=== PATIENT | male | born 1960 | race Hispanic/Latino ===

== ENCOUNTER 2018-05-03 15:43 | Inpatient (IN) | payer MEDICAID ==
[2018-05-03 15:53] VITALS: BMI 32.0
[2018-05-03] MEDS ORDERED: Sodium Chloride 0.9% 1,000 ML IV STA (16:02)
[2018-05-03 16:23] LABS: BASO # 0.01 K/mm3 (0.0-2.0); BASO % 0.7 % (0.0-3.0); GRAN # 0.69 (1.4-6.5); GRAN % 47.9 % (50.0-68.0); HEMOGLOBIN 14.1 g/dL (14.0-18.0); LYMPH # 0.6 (1.2-3.4); LYMPH % 42.4 % (22.0-35.0); MEAN CELL VOLUME 84.4 fl (80.0-105.0); MEAN CORPUSCULAR HEMOGLOBIN 29.7 pg (25.0-35.0); MEAN CORPUSCULAR HGB CONC 35.3 g/dl (31.0-37.0); MONO # 0.1 (0.1-0.6); RBC 4.74 10^6/uL (3.5-6.1); RED CELL DISTRIBUTION WIDTH 18.9 % (11.5-14.5)
--- NOTE | 2018-05-03 16:26 | RAD ---
HISTORY: tremors COMPARISON: 11/02/2014 FINDINGS: LUNGS: No active pulmonary disease. PLEURA: No significant pleural effusion identified, no pneumothorax apparent. CARDIOVASCULAR: Normal. OSSEOUS STRUCTURES: No significant abnormalities. VISUALIZED UPPER ABDOMEN: Normal. OTHER FINDINGS: None. IMPRESSION: No active disease.
[2018-05-03 16:27] LABS: PLATELET COUNT 18 10^3/uL (120.0-450.0); WHITE BLOOD COUNT 1.4 10^3/ul (4.5-11.0)
[2018-05-03 16:29] LABS: INR 0.98 (0.93-1.08); PARTIAL THROMBOPLASTIN TIME 30.1 Seconds (25.1-36.5); PROTHROMBIN TIME 11.2 SECONDS (9.4-12.5)
[2018-05-03 16:31] LABS: ALB/GLOB RATIO 1.4 (1.1-1.8); ALBUMIN 4.5 g/dL (3.0-4.8); ALT/SGPT 197 U/L (7-56); AMYLASE 84 U/L (35-125); AST/SGOT 312 U/L (17-59); BLOOD UREA NITROGEN 14 mg/dL (7-21); CALCIUM 8.8 mg/dL (8.4-10.5); GFR AFRICAN-AMERICAN > 60; GFR NON-AFRICAN AMERICAN > 60; LIPASE 451 U/L (23-300)
[2018-05-03 16:34] LABS: ACETAMINOPHEN < 10.0 ug/ml (10.0-20.0); SALICYLATE < 1 mg/dL (2.0-20.0)
[2018-05-03 16:42] LABS: TROPONIN I 0.01 ng/mL
[2018-05-03 16:49] LABS: CK-MB 3.5 ng/mL (0.0-3.6)
[2018-05-03] MEDS ORDERED: Multivitamin (MVI) 10 ML, Thiamine 100 MG, Folic Acid 1 MG in Dextrose 5% In Water 1,00... IV ONE (17:17)
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
--- NOTE | 2018-05-03 17:25 | CP.PCM.CON ---
History of Present Illness - History of Present Illness History of Present Illness: MICU CONSULT NOTE HPI Patient is 58yo male with PMHx of HTN, chronic thrombocytopenia, etoh abuse, reports 3pints of vodka/day, presents from home with shaking, and tremors. Pt reports last drink was yesterday, and has had anxiety and shaking since then. Pt denies fever, chills, cough, chest pain, sob, palpitations, CALDWELL dizziness. No other constitutional symptoms. Pt reports heavy etoh abuse over last few weeks after his girlfriend left him. In the ER given Ativan 2mg IV x 1, NS bolus 1 Liter. PMhx as above PSHx as above Meds as per EMR FHx NC Social denies smoking, drug use; reports 3 pints of vodka/day; owns a bar Review of Systems - Review of Systems Review of Systems: as per HPI Past Patient History - Past Social History Smoking Status: Never Smoked - CARDIAC Hx Hypertension: Yes - PULMONARY Hx Respiratory Disorders: No - NEUROLOGICAL Hx Neurological Disorder: No - HEENT Hx HEENT Problems: No - RENAL Hx Chronic Kidney Disease: No - ENDOCRINE/METABOLIC Hx Endocrine Disorders: No - HEMATOLOGICAL/ONCOLOGICAL Hx Blood Disorders: Yes (Thrombocytopenia) - INTEGUMENTARY Hx Dermatological Problems: No - MUSCULOSKELETAL/RHEUMATOLOGICAL Hx Musculoskeletal Disorders: No Hx Falls: No - GASTROINTESTINAL Hx Gastrointestinal Disorders: No - GENITOURINARY/GYNECOLOGICAL Hx Genitourinary Disorders: No - PSYCHIATRIC Hx Psychophysiologic Disorder: No Hx Substance Use: No - SURGICAL HISTORY Hx Surgeries: No Meds Allergies/Adverse Reactions: Allergies Allergy/AdvReac Type Severity Reaction Status Date / Time No Known Allergies Allergy Verified 05/03/18 15:56 - Medications Medications: Current Medications Multivitamins/Vitamin C 10 ml/Thiamine HCl 100 mg/ Folic Acid 1 mg/ Dextrose 1, 011.2 mls @ 1,000 mls/hr IV .Q1H1M ONE Stop: 05/03/18 18:17 Physical Exam - Constitutional Appears: Non-toxic, No Acute Distress, Unkempt - Head Exam Head Exam: NORMAL INSPECTION - Eye Exam Eye Exam: Normal appearance - ENT Exam ENT Exam: Mucous Membranes Moist - Neck Exam Neck exam: Positive for: Full Rom - Respiratory Exam Respiratory Exam: Clear to Auscultation Bilateral, NORMAL BREATHING PATTERN - Cardiovascular Exam Cardiovascular Exam: REGULAR RHYTHM, +S1, +S2 - GI/Abdominal Exam GI & Abdominal Exam: Normal Bowel Sounds, Soft - Extremities Exam Extremities exam: Positive for: normal inspection Additional comments: NO TREMORS - Neurological Exam Neurological exam: Alert, Oriented x3 Results - Vital Signs Recent Vital Signs: Last Vital Signs Temp 98.1 F 05/03/18 15:54 Pulse 119 H 05/03/18 15:54 Resp 18 05/03/18 15:54 BP 157/107 H 05/03/18 15:54 Pulse Ox 96 05/03/18 15:54 - Labs Result Diagrams: 05/03/18 16:00 05/03/18 16:00 Labs: Laboratory Results - last 24 hr 05/03/18 05/03/18 05/03/18 16:00 16:00 16:00 WBC 1.4 L* D RBC 4.74 Hgb 14.1 Hct 40.0 L MCV 84.4 MCH 29.7 MCHC 35.3 RDW 18.9 H Plt Count 18 L* Gran % 47.9 L Lymph % (Auto) 42.4 H Bowie % (Auto) 9.0 H Eos % (Auto) 0.0 L Baso % (Auto) 0.7 Gran # 0.69 L Lymph # (Auto) 0.6 L Bowie # (Auto) 0.1 Eos # (Auto) 0.0 Baso # (Auto) 0.01 PT 11.2 INR 0.98 APTT 30.1 Sodium 149 H Potassium 4.0 Chloride 105 Carbon Dioxide 21 Anion Gap 27 H BUN 14 Creatinine 1.0 Est GFR ( Amer) > 60 Est GFR (Non-Af Amer) > 60 Random Glucose 145 H Calcium 8.8 Magnesium 1.6 L Total Bilirubin 1.6 H AST 312 H ALT 197 H Alkaline Phosphatase 81 Lactate Dehydrogenase 1043 H Total Creatine Kinase 294 H CK-MB (CK-2) 3.5 CK-MB (CK-2) % Cancelled Troponin I 0.01 Total Protein 7.7 Albumin 4.5 Globulin 3.2 Albumin/Globulin Ratio 1.4 Amylase 84 Lipase 451 H Salicylates Acetaminophen Alcohol, Quantitative 05/03/18 05/03/18 16:00 16:00 WBC RBC Hgb Hct MCV MCH MCHC RDW Plt Count Gran % Lymph % (Auto) Bowie % (Auto) Eos % (Auto) Baso % (Auto) Gran # Lymph # (Auto) Bowie # (Auto) Eos # (Auto) Baso # (Auto) PT INR APTT Sodium Potassium Chloride Carbon Dioxide Anion Gap BUN Creatinine Est GFR ( Amer) Est GFR (Non-Af Amer) Random Glucose Calcium Magnesium Total Bilirubin AST ALT Alkaline Phosphatase Lactate Dehydrogenase Total Creatine Kinase CK-MB (CK-2) CK-MB (CK-2) % Troponin I Total Protein Albumin Globulin Albumin/Globulin Ratio Amylase Lipase Salicylates < 1 L Acetaminophen < 10.0 L Alcohol, Quantitative 290 H Assessment & Plan - Assessment and Plan (Free Text) Assessment: 58yo male a/w EtOH withdrawal EtOH withdrawal Chronic Thrombocytopenia - currently afebrile, HD stable, comfortable in NAD, reports tremors/shakes, denies CALDWELL, dizziness, falls, epistaxis, rectal bleeding - HR 90-100, no extension tremors noted (given Ativan 2mg IV x 1) - Positive alcohol level - IVF hydration, MVT, thiamine, Folic - Ativan IV PRN - CIWA protocol - Bedrest given thrombocytopenia, + alcohol - pt reports he would like detox, obtain psych eval - monitor K, Mg, Phos - monitor on telemetry
--- NOTE | 2018-05-03 19:46 | CT ---
EXAM: CT Head Without Intravenous Contrast CLINICAL HISTORY: 58 years old, male; Screening exam; Patient HX: ETOH TECHNIQUE: Axial computed tomography images of the head/brain without intravenous contrast. All CT scans at this facility use one or more dose reduction techniques, viz.: automated exposure control; ma/kV adjustment per patient size (including targeted exams where dose is matched to indication; i.e. head); or iterative reconstruction technique. Coronal and sagittal reformatted images were created and reviewed. COMPARISON: No relevant prior studies available. FINDINGS: Brain: Mild atrophy. No intracranial hemorrhage. No mass. No definite edema. Ventricles: No hydrocephalus. Bones/joints: No acute fracture. Soft tissues: Unremarkable. Vasculature: Minimal atherosclerotic disease of intracranial arteries. Sinuses: Scattered minimal to mild mucosal thickening of ethmoid sinuses. Mild focal mucosal thickening of maxillary sinuses. Mastoid air cells: No mastoid effusion. Orbits: Unremarkable as visualized. IMPRESSION: 1. No definite acute intracranial abnormality. 2. Incidental/non-acute findings are described above.
[2018-05-04 07:14] LABS: HEMOGLOBIN 11.9 g/dL (14.0-18.0); MEAN CELL VOLUME 84.6 fl (80.0-105.0); MEAN CORPUSCULAR HEMOGLOBIN 29.1 pg (25.0-35.0); MEAN CORPUSCULAR HGB CONC 34.4 g/dl (31.0-37.0); RBC 4.09 10^6/uL (3.5-6.1); RED CELL DISTRIBUTION WIDTH 18.7 % (11.5-14.5)
[2018-05-04 07:31] LABS: PLATELET COUNT 13 10^3/uL (120.0-450.0)
[2018-05-04 07:46] LABS: ALB/GLOB RATIO 1.5 (1.1-1.8); ALT/SGPT 164 U/L (7-56); AST/SGOT 230 U/L (17-59); BLOOD UREA NITROGEN 14 mg/dL (7-21); CALCIUM 9.1 mg/dL (8.4-10.5); GFR AFRICAN-AMERICAN > 60; GFR NON-AFRICAN AMERICAN > 60
[2018-05-04 07:55] LABS: IRON 201 ug/dL (45-180)
[2018-05-04] MEDS ORDERED: Magnesium Sulfate 2 GM in Sodium Chloride 0.9% 100 ML IV ONE (09:24)
[2018-05-04] MEDS ORDERED: Magnesium 2 gm/50 ml NS 2 GM/50 ML BAG IVPB ONE (09:45)
--- NOTE | 2018-05-04 09:59 | CARD ---
APPROVED REPORT EKG Measurement Heart [id number] CO [id number] <Conclusion> Normal sinus rhythm NSSTW changes No change
[2018-05-04 10:17] LABS: % IRON SATURATION 88 % (20-55); TOTAL IRON BINDING CAPACITY 238 ug/dL (261-462)
--- NOTE | 2018-05-04 11:07 | CP.PCM.CON ---
<Pamela Hernandez - Last Filed: 05/04/18 11:43> History of Present Illness - History of Present Illness History of Present Illness: GI Consult Note for Jorge Hernandez PGY2 This is a 58yo male with past medical history of alcoholism, chronic thrombocytopenia who came to hospital for tremors, shaking secondary to alcohol withdrawal. Patient was noted to have abnormal LFTs and hyperbilirubinemia. Patient reports his last drink was 2 days ago. He denies taking any new medication, recent travel, chest pain, shortness of breath, nausea/vomiting/ diarrhea, fever or chills. Patient reports he never had an EGD or colonoscopy. Past medical history: chronic thrombocytopenia, EtOH abuse, anxiety Past surgical history: Denies Home meds: Reviewed as per MAR Allergies: NKDA Social history: drinks 3 pints of vodka per day. Denies tobacco or drug use. Works as a bar terminal superintendent. Family history: Non- Review of Systems - Review of Systems All systems: reviewed and no additional remarkable complaints except Review of Systems: 12 point ROS reviewed as per HPI and is otherwise negative. Past Patient History - Tetanus Immunizations Tetanus Immunization: Unknown - Past Social History Smoking Status: Never Smoked - CARDIAC Hx Hypertension: Yes - PULMONARY Hx Respiratory Disorders: No - NEUROLOGICAL Hx Neurological Disorder: No - HEENT Hx HEENT Problems: No - RENAL Hx Chronic Kidney Disease: No - ENDOCRINE/METABOLIC Hx Endocrine Disorders: No - HEMATOLOGICAL/ONCOLOGICAL Hx Blood Disorders: Yes (Thrombocytopenia) - INTEGUMENTARY Hx Dermatological Problems: No - MUSCULOSKELETAL/RHEUMATOLOGICAL Hx Falls: No Hx Gout: Yes - GASTROINTESTINAL Hx Gastrointestinal Disorders: No - GENITOURINARY/GYNECOLOGICAL Hx Genitourinary Disorders: No - PSYCHIATRIC Hx Psychophysiologic Disorder: No Hx Anxiety: Yes - SURGICAL HISTORY Hx Surgeries: No Meds Allergies/Adverse Reactions: Allergies Allergy/AdvReac Type Severity Reaction Status Date / Time No Known Allergies Allergy Verified 05/03/18 15:56 - Medications Medications: Current Medications Alprazolam (Xanax) 1 mg PO Q4H PRN; Protocol PRN Reason: Anxiety Last Admin: 05/04/18 09:01 Dose: 1 mg Chlordiazepoxide (Librium) 75 mg PO BID [facility] PRN Reason: Protocol Last Admin: 05/04/18 09:01 Dose: 75 mg Magnesium Oxide (Mag-Ox) 400 mg PO BID [facility] Multivitamins (Thera Tab) 1 tab PO 0800 [facility] Thiamine HCl (Vitamin B1 Tab) 100 mg PO DAILY [facility] Physical Exam - Constitutional Appears: No Acute Distress - Head Exam Head Exam: ATRAUMATIC, NORMAL INSPECTION, NORMOCEPHALIC - Eye Exam Eye Exam: Normal appearance Pupil Exam: NORMAL ACCOMODATION - ENT Exam ENT Exam: Mucous Membranes Moist - Respiratory Exam Respiratory Exam: Clear to Auscultation Bilateral, NORMAL BREATHING PATTERN. absent: Rales, Rhonchi, Wheezes - Cardiovascular Exam Cardiovascular Exam: REGULAR RHYTHM, +S1, +S2. absent: Gallop, Rubs, Systolic Murmur - GI/Abdominal Exam GI & Abdominal Exam: Normal Bowel Sounds, Soft. absent: Mass, Rebound, Rigid, Tenderness - Extremities Exam Extremities exam: Positive for: normal inspection. Negative for: calf tenderness, pedal edema - Neurological Exam Neurological exam: Alert, CN II-XII Intact, Oriented x3 - Skin Skin Exam: Dry, Warm Results - Vital Signs Recent Vital Signs: Last Vital Signs Temp 98.2 F 05/04/18 06:00 Pulse 86 05/04/18 06:00 Resp 18 05/04/18 06:00 BP 137/98 H 05/04/18 00:01 Pulse Ox 96 05/04/18 06:00 - Labs Result Diagrams: 05/04/18 06:30 05/04/18 06:30 Labs: Laboratory Results - last 24 hr 05/03/18 05/04/18 05/04/18 19:00 06:30 06:30 WBC 1.0 L* D RBC 4.09 Hgb 11.9 L D Hct 34.6 L MCV 84.6 MCH 29.1 MCHC 34.4 RDW 18.7 H Plt Count 13 L* Retic Count 0.92 Sodium 139 Potassium 4.2 Chloride 100 Carbon Dioxide 28 Anion Gap 15 BUN 14 Creatinine 0.8 Est GFR ( Amer) > 60 Est GFR (Non-Af Amer) > 60 Random Glucose 97 Calcium 9.1 Phosphorus 3.3 Magnesium 1.2 L Iron TIBC % Saturation Total Bilirubin 2.0 H AST 230 H D ALT 164 H Alkaline Phosphatase 86 Total Protein 6.7 Albumin 4.0 Globulin 2.7 Albumin/Globulin Ratio 1.5 Blood Type B POSITIVE Antibody Screen Negative BBK History Checked Patient has bt 05/04/18 06:30 WBC RBC Hgb Hct MCV MCH MCHC RDW Plt Count Retic Count Sodium Potassium Chloride Carbon Dioxide Anion Gap BUN Creatinine Est GFR ( Amer) Est GFR (Non-Af Amer) Random Glucose Calcium Phosphorus Magnesium Iron 201 H TIBC 238 L % Saturation 88 H Total Bilirubin AST ALT Alkaline Phosphatase Total Protein Albumin Globulin Albumin/Globulin Ratio Blood Type Antibody Screen BBK History Checked Assessment & Plan - Assessment and Plan (Free Text) Assessment: This is a 58yo male with past medical history of alcoholism, chronic thrombocytopenia who was admitted for 1. Alcohol withdrawal 2. Transaminitis with hyperbilirubinemia - can be secondary to alcoholism v. other etiology (will rule out hemochromotosis and hepatitis) 3. Thrombocytopenia (chronic) Plan: Iron studies were elevated. Will rule out hemochromotosis. Will get hepatitis panel. Possible EGD tomorrow. Will obtain abdominal U/S as well as abdominal duplex U/S to rule out portal vein thrombosis. Hold PPI for thrombocytopenia. Will continue to monitor LFTs Case seen, discussed and reviewed with Dr. James. Jorge Hernandez PGY2 - Date & Time Date: 05/04/18 Time: 12:07 <Román James V - Last Filed: 05/04/18 20:49> Meds - Medications Medications: Current Medications Alprazolam (Xanax) 1 mg PO Q4H PRN; Protocol PRN Reason: Anxiety Last Admin: 05/04/18 18:43 Dose: 1 mg Chlordiazepoxide (Librium) 75 mg PO BID [facility] PRN Reason: Protocol Last Admin: 05/04/18 18:33 Dose: 75 mg Magnesium Oxide (Mag-Ox) 400 mg PO BID [facility] Last Admin: 05/04/18 18:33 Dose: 400 mg Multivitamins (Thera Tab) 1 tab PO 0800 [facility] Thiamine HCl (Vitamin B1 Tab) 100 mg PO DAILY [facility] Last Admin: 05/04/18 11:19 Dose: 100 mg Results - Vital Signs Recent Vital Signs: Last Vital Signs Temp 99.6 F 05/04/18 18:00 Pulse 83 05/04/18 18:00 Resp 18 05/04/18 18:00 BP 135/98 H 05/04/18 18:00 Pulse Ox 96 05/04/18 06:00 - Labs Result Diagrams: 05/04/18 06:30 05/04/18 06:30 Labs: Laboratory Results - last 24 hr 05/04/18 05/04/18 05/04/18 06:30 06:30 06:30 WBC 1.0 L* D RBC 4.09 Hgb 11.9 L D Hct 34.6 L MCV 84.6 MCH 29.1 MCHC 34.4 RDW 18.7 H Plt Count 13 L* Retic Count 0.92 Sodium 139 Potassium 4.2 Chloride 100 Carbon Dioxide 28 Anion Gap 15 BUN 14 Creatinine 0.8 Est GFR ( Amer) > 60 Est GFR (Non-Af Amer) > 60 Random Glucose 97 Calcium 9.1 Phosphorus 3.3 Magnesium 1.2 L Iron 201 H TIBC 238 L % Saturation 88 H Ferritin 313.0 Total Bilirubin 2.0 H AST 230 H D ALT 164 H Alkaline Phosphatase 86 Total Protein 6.7 Albumin 4.0 Globulin 2.7 Albumin/Globulin Ratio 1.5 Vitamin B12 536 Folate 9.2 Hepatitis A IgM Ab Hep Bs Antigen Hep B Core IgM Ab Hepatitis C Antibody 05/04/18 12:25 WBC RBC Hgb Hct MCV MCH MCHC RDW Plt Count Retic Count Sodium Potassium Chloride Carbon Dioxide Anion Gap BUN Creatinine Est GFR ( Amer) Est GFR (Non-Af Amer) Random Glucose Calcium Phosphorus Magnesium Iron TIBC % Saturation Ferritin Total Bilirubin AST ALT Alkaline Phosphatase Total Protein Albumin Globulin Albumin/Globulin Ratio Vitamin B12 Folate Hepatitis A IgM Ab Negative Hep Bs Antigen Negative Hep B Core IgM Ab Negative Hepatitis C Antibody Negative Attending/Attestation - Attestation I have personally seen and examined this patient.: Yes I have fully participated in the care of the patient.: Yes I have reviewed all pertinent clinical information: Yes Notes (Text): This is an addendum to GI consult report dictated by the Gear Cutting Machine Set Up Operator.The patient was seen and examined earlier. Medical records, lab studies, imagings were reviewed. Last 24 hours events reviewed. Agreed with the above treatment plan as outlined in Gear Cutting Machine Set Up Operator 's notes the with the addition of the following History of heavy EtOH abuse Chronic liver disease probable cirrhosis History of fall Pancytopenia Increased transferring saturation 88%. Increased iron and reduced to TIBC rule out hemachromatosis On examination abdomen softly distended no tenderness Plan 1. Will hold off EGD now. Await for further medical optimization, severe thrombocytopenia 2. Pancytopenia probably secondary to alcohol INDUCED in the backround of chronic liver disease probable cirrhosis 3. Probable cirrhosis, request alfafetoprotein, 4.Serum ammoinia level 5 monitor closely for impending DT 05/04/18 20:38
[2018-05-04] MEDS: Magnesium Oxide 400 mg Tab UD PO SCH ×2 (11:19→18:33)
[2018-05-04 13:26] LABS: FOLATE 9.2 ng/mL
[2018-05-04 16:33] LABS: HEPATITIS B SURFACE AG Negative (NEGATIVE)
[2018-05-04 16:49] LABS: HEPATITIS C ANTIBODY NEGATIVE (NEGATIVE)
[2018-05-04 18:54] LABS: HEPATITIS A IGM NEGATIVE (NEGATIVE); HEPATITIS B CORE AB NEGATIVE (NEGATIVE)
--- NOTE | 2018-05-04 20:30 | HP ---
DATE OF EXAM: CHIEF COMPLAINT AND HISTORY OF PRESENT ILLNESS: This is a 58-year-old male who has come into the hospital. He has been drinking. He does have a history of alcoholism. He was to go through withdrawals, came into the hospital for further evaluation. He apparently had a breakup with his girlfriend. He has a history of anxiety. He denies any suicidal ideation or plan. He has no shortness of breath or chest pain. He has no abdominal pain. No headaches or dizziness. No nausea. No vomiting. No fevers. He had a fall about 3 weeks ago. His last drink was yesterday morning. He has been complaining of tremors and fatigue. He had spoken with Dr. Anderson, his primary care doctor and he is advised to come to the hospital for further evaluation. REVIEW OF SYMPTOMS: All other review of symptoms are within normal limits except as mentioned. ALLERGIES: NO KNOWN DRUG ALLERGIES. HOME MEDICATIONS: None. PAST MEDICAL HISTORY: Chronic thrombocytopenia, alcoholism, hypertension, anxiety and gout. SOCIAL HISTORY: He drinks 3 pints of Vodka per day. He has a history of cocaine use. FAMILY HISTORY: Noncontributory. PHYSICAL EXAMINATION: VITAL SIGNS: He has a temperature of 98.2, pulse is 86, blood pressure is 137/98, respirations 18 and O2 saturation 96%. Height is 6 feet 5 inches, weight is 250 pounds, BMI is 29.7. GENERAL: The patient lying in bed, uncomfortable, and in no acute distress. HEENT: Atraumatic and normocephalic. Anicteric sclerae. Moist mucosa. [place] conjunctivae. No oral lesions. NECK: No JVD, anterior and posterior adenopathy, thyromegaly, or bruits. CARDIOVASCULAR: S1 and S2 regular. No murmur, rubs, or gallop. LUNGS: Clear to auscultation bilaterally. No wheezes, rales, or rhonchi. ABDOMEN: Bowel sounds are positive. Soft, nontender and nondistended. No hepatosplenomegaly. No rebound and no guarding EXTREMITIES: No cyanosis, clubbing or edema. NEUROLOGIC: No facial asymmetry. Tongue is midline. No uvula deviation. Power is 5/5 upper extremity and lower extremity. Sensation intact in upper extremity and lower extremity. He has tremor. PSYCHIATRIC: He is awake, alert and oriented x3. No anxiety or depression. He has normal affect. GENITOURINARY: No CVA tenderness. VASCULAR: 2+ pulses in the carotid pulses and pedal pulses. SKIN: No erythema or nodules SPINE: Shows normal curvature. LABORATORY DATA: White count is 1.4, hemoglobin is 14.1, platelet count is 18. Repeat labs, white count of 1, hemoglobin is 11.9, platelet count is 13. Manual platelet count is 20. INR 0.98. Chemistry shows AST is 230, ALT is 164. LDH is 1043. Lipase is 451. Toxicology shows salicylates negative, alcohol is 290, acetaminophen is less than 10. DIAGNOSTIC DATA: CT of the head done, shows no definite acute intracranial abnormalities. Chest x-ray shows no active disease. ASSESSMENT: 1. Alcohol withdrawal. 2. Alcoholism. 3. Thrombocytopenia. 4. Leukopenia. 5. Transaminitis. 6. Cirrhosis. PLAN: The patient is currently comfortable. He was given his Librium. Patient will need evaluation by GI for cirrhosis. The patient is on Xanax. I will also get Dr. Mandujano to evaluate the nurse's concern about hematuria. Patient will need a UA to check if he has hematuria. He may just have hyperbilirubinemia that may be discoloring the patient's urine. He is currently on telemetry monitoring. I have increased his Librium to 75 mg b.i.d. and he is on Xanax for breakthrough anxiety as well. Giovanny Ni MD
--- NOTE | 2018-05-04 21:24 | US ---
PROCEDURE: Portal vein duplex ultrasound. CLINICAL HISTORY: Cirrhosis. Deteriorating liver function. Evaluate for portal vein thrombosis. PHYSICIAN(S): William Anderson M.D. FINDINGS: The extrahepatic portal vein is patent with hepatopetal flow. No sonographic evidence for thrombus or obstruction is seen. The 3 hepatic veins are visualized centrally and patent. The hepatic artery is patent. The hepatic parenchyma is echogenic and heterogeneous. No obvious masses are seen on the limited images. The spleen is enlarged. No ascites is seen IMPRESSION: 1. Patent portal vein with hepatopetal flow.
--- NOTE | 2018-05-05 00:09 | CP.PCM.CON ---
History of Present Illness - History of Present Illness History of Present Illness: Mr. Caldwell is a 58 year old male admitted with ETOH withdrawl. He has pancytopenia. review of records showed that pancytopenia has been there since 2011. He underwent Bone marrow aspiration, biopsy in 2012, unremarkable. Platelet count declined to 13 k. No bleeding. Iron studies showed elevated iron. Review of Systems - Constitutional Constitutional: As Per HPI - EENT Eyes: absent: As Per HPI, Blind Spots, Blurred Vision, Change in Vision, Decreased Night Vision, Diplopia, Discharge, Dry Eye, Exophthalmos, Floaters, Irritation, Itchy Eyes, Loss of Peripheral Vision, Pain, Photophobia, Requires Corrective Lenses, Sees Flashes, Spots in Vision, Tunnel Vision, Other Visual Disturbances, Loss of Vision, Other Nose/Mouth/Throat: absent: As Per HPI, Epistaxis, Nasal Congestion, Nasal Discharge, Nasal Obstruction, Nasal Trauma, Nose Pain, Post Nasal Drip, Sinus Pain, Sinus Pressure, Bleeding Gums, Change in Voice, Dental Pain, Dry Mouth, Dysphagia, Halitosis, Hoarsness, Lip Swelling, Mouth Lesions, Mouth Pain, Odynophagia, Sore Throat, Throat Swelling, Tongue Swelling, Facial Pain, Neck Pain, Neck Mass, Other - Cardiovascular Cardiovascular: absent: As Per HPI, Acrocyanosis, Chest Pain, Chest Pain at Rest , Chest Pain with Activity, Claudication, Diaphoresis, Dyspnea, Dyspnea on Exertion, Edema, Irregular Heart Rhythm, Pain Radiating to Arm/Neck/Jaw, Leg Edema, Leg Ulcers, Lightheadedness, Orthopnea, Palpitations, Paroxysmal Nocturnal Dyspnea, Pedal Edema, Radiating Pain, Rapid Heart Rate, Slow Heart Rate, Syncope, Other - Respiratory Respiratory: absent: As Per HPI, Cough, Dyspnea, Hemoptysis, Dyspnea on Exertion , Wheezing, Snoring, Stridor, Pain on Inspiration, Chest Congestion, Excessive Mucous Production, Change in Mucous Color, Pain with Coughing, Other - Gastrointestinal Gastrointestinal: As Per HPI - Genitourinary Genitourinary: absent: As Per HPI, Change in Urinary Stream, Difficulty Urinating, Dysuria, Flank Pain, Hematuria, Pyuria, Nocturia, Urinary Incontinence, Urinary Frequency, Urinary Hesitance, Urinary Urgency, Voiding Freq/Small Amts, Freq UTI, Hx Renal/Bladder Calculi, Hx /Renal Surgery, Bladder Distension, Other - Musculoskeletal Musculoskeletal: absent: As Per HPI, Abnormal Gait, Arthralgias, Atrophy, Back Pain, Deformity, Joint Swelling, Limited Range of Motion, Loss of Height, Muscle Cramps, Muscle Weakness, Myalgias, Neck Pain, Numbness, Radiating Pain into Limb, Stiffness, Tingling, Other - Integumentary Integumentary: absent: As Per HPI, Acne, Alopecia, Bleeding Lesions, Change in Hair, Change in Nails, Change in Pigmentation, Changing Lesions, Dry Skin, Erythema, Furuncle, Hirsutism, Lesions, New Lesions, Non-Healing Lesions, Photosensitivity, Pruritus, Rash, Skin Pain, Skin Ulcer, Sores, Striae, Swelling , Unusual Bruising, Wounds, Jaundice, Other - Endocrine Endocrine: absent: As Per HPI, Change in Body Appearance, Change in Libido, Cold Intolorance, Deepening of Voice, Excessive Sweating, Fatigue, Flushing, Heat Intolorance, Increase in Ring/Shoe/Hat Size, Palpitations, Polydipsia, Polyphagia, Polyuria, Other - Hematologic/Lymphatic Hematologic: As Per HPI Past Patient History - Tetanus Immunizations Tetanus Immunization: Unknown - Past Social History Smoking Status: Never Smoked - CARDIAC Hx Hypertension: Yes - PULMONARY Hx Respiratory Disorders: No - NEUROLOGICAL Hx Neurological Disorder: No - HEENT Hx HEENT Problems: No - RENAL Hx Chronic Kidney Disease: No - ENDOCRINE/METABOLIC Hx Endocrine Disorders: No - HEMATOLOGICAL/ONCOLOGICAL Hx Blood Disorders: Yes (Thrombocytopenia) - INTEGUMENTARY Hx Dermatological Problems: No - MUSCULOSKELETAL/RHEUMATOLOGICAL Hx Falls: No Hx Gout: Yes - GASTROINTESTINAL Hx Gastrointestinal Disorders: No - GENITOURINARY/GYNECOLOGICAL Hx Genitourinary Disorders: No - PSYCHIATRIC Hx Psychophysiologic Disorder: No Hx Anxiety: Yes - SURGICAL HISTORY Hx Surgeries: No Meds Allergies/Adverse Reactions: Allergies Allergy/AdvReac Type Severity Reaction Status Date / Time No Known Allergies Allergy Verified 05/03/18 15:56 - Medications Medications: Current Medications Alprazolam (Xanax) 1 mg PO Q4H PRN; Protocol PRN Reason: Anxiety Last Admin: 05/04/18 22:15 Dose: 1 mg Chlordiazepoxide (Librium) 100 mg PO BID [facility] PRN Reason: Protocol Magnesium Oxide (Mag-Ox) 400 mg PO BID [facility] Last Admin: 05/04/18 18:33 Dose: 400 mg Multivitamins (Thera Tab) 1 tab PO 0800 [facility] Thiamine HCl (Vitamin B1 Tab) 100 mg PO DAILY [facility] Last Admin: 05/04/18 11:19 Dose: 100 mg Physical Exam - Constitutional Appears: Well, Non-toxic - Head Exam Head Exam: ATRAUMATIC, NORMAL INSPECTION, NORMOCEPHALIC - Eye Exam Eye Exam: Normal appearance - ENT Exam ENT Exam: Mucous Membranes Moist - Neck Exam Neck exam: Positive for: Normal Inspection - Respiratory Exam Respiratory Exam: Clear to Auscultation Bilateral, NORMAL BREATHING PATTERN - Cardiovascular Exam Cardiovascular Exam: REGULAR RHYTHM, +S1, +S2 - GI/Abdominal Exam GI & Abdominal Exam: Normal Bowel Sounds, Soft - Extremities Exam Extremities exam: Positive for: normal inspection - Back Exam Back exam: NORMAL INSPECTION - Neurological Exam Neurological exam: Alert, Oriented x3 - Skin Skin Exam: Pallor Results - Vital Signs Recent Vital Signs: Last Vital Signs Temp 99.6 F 05/04/18 18:00 Pulse 85 05/04/18 22:15 Resp 18 05/04/18 18:00 BP 165/115 H 05/04/18 22:15 Pulse Ox 96 05/04/18 06:00 - Labs Result Diagrams: 05/04/18 06:30 05/04/18 06:30 Labs: Laboratory Results - last 24 hr 05/04/18 05/04/18 05/04/18 06:30 06:30 06:30 WBC 1.0 L* D RBC 4.09 Hgb 11.9 L D Hct 34.6 L MCV 84.6 MCH 29.1 MCHC 34.4 RDW 18.7 H Plt Count 13 L* Retic Count 0.92 Sodium 139 Potassium 4.2 Chloride 100 Carbon Dioxide 28 Anion Gap 15 BUN 14 Creatinine 0.8 Est GFR ( Amer) > 60 Est GFR (Non-Af Amer) > 60 Random Glucose 97 Calcium 9.1 Phosphorus 3.3 Magnesium 1.2 L Iron 201 H TIBC 238 L % Saturation 88 H Ferritin 313.0 Total Bilirubin 2.0 H AST 230 H D ALT 164 H Alkaline Phosphatase 86 Total Protein 6.7 Albumin 4.0 Globulin 2.7 Albumin/Globulin Ratio 1.5 Vitamin B12 536 Folate 9.2 Hepatitis A IgM Ab Hep Bs Antigen Hep B Core IgM Ab Hepatitis C Antibody 05/04/18 12:25 WBC RBC Hgb Hct MCV MCH MCHC RDW Plt Count Retic Count Sodium Potassium Chloride Carbon Dioxide Anion Gap BUN Creatinine Est GFR ( Amer) Est GFR (Non-Af Amer) Random Glucose Calcium Phosphorus Magnesium Iron TIBC % Saturation Ferritin Total Bilirubin AST ALT Alkaline Phosphatase Total Protein Albumin Globulin Albumin/Globulin Ratio Vitamin B12 Folate Hepatitis A IgM Ab Negative Hep Bs Antigen Negative Hep B Core IgM Ab Negative Hepatitis C Antibody Negative Assessment & Plan - Assessment and Plan (Free Text) Assessment: 1. Pancytopenia : differential diagnosis include bone marrow suppression due to ETOH abuse. Aplastic anemia, MDS. Splenomegaly . He will need bone marrow aspiration, biopsy for evaluation of pancytopenia. Bone marrow was normal in 2011. 2. 2 units of platelet transfusion today. 3. Elevated iron studies : r/o hemchromatosis Thank you Dr. Ni for allowing us to participate in his care. - Date & Time Date: 05/04/18 Time: 09:00
--- NOTE | 2018-05-05 03:37 | CON ---
DATE: 05/04/2018 GENITOURINARY CONSULTATION CHIEF COMPLAINT: Alcohol ingestion. HISTORY OF PRESENT ILLNESS: This is a 58-year-old male who was seen in the emergency room. The patient reports binge drinking for the past month or so after breaking up with his girlfriend. He is complaining of feeling anxious. He reports he fell a few weeks ago but denies any injury. The patient was admitted for treatment of tremors, fatigue and alcohol withdrawal. During his admission, he was noted to have blood-tinged urine and a Urology consultation was requested. The patient reports he is voiding well. He denies any frequency or urgency. He does report he did have some dysuria few weeks ago, but that this has resolved. He is unsure whether he has seen any gross blood in the urine but it does appear that he has had gross hematuria. He denies any flank pain or history of kidney stones. A consultation was requested regarding the above. PAST MEDICAL HISTORY: Positive for alcohol abuse, positive for thrombocytopenia. Denies any diabetes or hypertension. MEDICATIONS: Include Librium, magnesium oxide, Feratab, vitamin B1, Xanax. ALLERGIES: NO KNOWN DRUG ALLERGIES. FAMILY HISTORY: Noncontributory to this admission. SOCIAL HISTORY: Positive for daily EtOH use. Denies any smoking history. REVIEW OF SYSTEMS: A 12-point review of systems was obtained. Positives as the history of present illness. Denies any other acute issues. PHYSICAL EXAMINATION: GENERAL: The patient is awake and alert. He is in no acute distress. He is afebrile. VITAL SIGNS: Temperature of 98.2, pulse 86, respirations 18, blood pressure 137/98. NECK: Supple. There is no adenopathy or mass. CHEST: Reveals a normal inspiratory effort. CARDIAC: Shows positive S1 and S2. There is no peripheral edema. ABDOMEN: Soft, nontender, nondistended. There is no hepatosplenomegaly. There is no costovertebral angle tenderness. GENITOURINARY: Phallus is normal. There is some dried blood at the urethral meatus. Scrotum is normal. Testes bilaterally descended, nontender, no masses. Epididymis are normal. EXTREMITIES: There is no cyanosis or edema. LABORATORY DATA: WBC count 1, hemoglobin 11.9, platelet count of 13,000. Coags show a PT of 11.2 and INR 0.98. Creatinine 0.8, with a GFR of greater than 60. Elevated liver enzymes, elevated lipase, elevated creatinine kinase and LDH. Alcohol level of 290 from 05/03/2018. No urinalysis has been done. On microbiology, no urine culture is noted. On radiologic exam, no pertinent urologic exams at this time. IMPRESSION AND PLAN: This is a 58-year-old male suffering from alcohol withdrawal. Elevated liver function tests as well as elevated lipase. Possibly the dark colored urine is from bilirubin in the urine, but there does appear to be some dried blood at the urethral meatus. Likely cause would be thrombocytopenia as well, and patient has extremely low platelet count as well as WBC count. Urologically, the plan would be a Hematology consultation to correct the WBCs and thrombocytopenia. We can plan on abdominal imaging such as a CT or an ultrasound to assess his kidneys. Need continued GI and Medicine treatment regarding possible pancreatitis and alcohol withdrawal. I will order a urinalysis for now and a urine culture. If the patient does have gross hematuria, we can consider a cystoscopy at some point when his hematologic abnormalities have been corrected. Thank you for allowing me to participate In the care of this patient. Memo Henry MD [id number]
[2018-05-05 06:18] LABS: HEMOGLOBIN 11.6 g/dL (14.0-18.0); MEAN CELL VOLUME 84.8 fl (80.0-105.0); MEAN CORPUSCULAR HEMOGLOBIN 28.9 pg (25.0-35.0); RBC 4.02 10^6/uL (3.5-6.1); RED CELL DISTRIBUTION WIDTH 18.5 % (11.5-14.5)
[2018-05-05 06:25] LABS: WHITE BLOOD COUNT 1.2 10^3/ul (4.5-11.0)
[2018-05-05 06:26] LABS: PLATELET COUNT 19 10^3/uL (120.0-450.0)
[2018-05-05 07:12] LABS: ALB/GLOB RATIO 1.4 (1.1-1.8); ALBUMIN 4.1 g/dL (3.0-4.8); BLOOD UREA NITROGEN 10 mg/dL (7-21); CALCIUM 9.3 mg/dL (8.4-10.5); GFR AFRICAN-AMERICAN > 60; GFR NON-AFRICAN AMERICAN > 60
[2018-05-05 07:13] LABS: ALT/SGPT 315 U/L (7-56); AST/SGOT 683 U/L (17-59)
[2018-05-05] MEDS: Multivitamin Therapeutic Tab PO SCH (08:13)
--- NOTE | 2018-05-05 11:18 | CP.PCM.PN ---
<Bev Higginbotham - Last Filed: 05/05/18 11:14> Subjective - Date & Time of Evaluation Date of Evaluation: 05/05/18 Time of Evaluation: 10:00 - Subjective Subjective: S&E at bedside earlier today, chart reviewed. Patient A/A/O denies N/V abdominal pain, hematemesis, had BM , no Gi bleeding reported. Denies tremors.No acute overnight events. Objective - Vital Signs/Intake and Output Vital Signs (last 24 hours): Temp Pulse Resp BP Pulse Ox 99.8 F H 89 20 145/103 H 98 05/05/18 06:00 05/05/18 06:00 05/05/18 06:00 05/05/18 06:00 05/05/18 06:00 Intake and Output: 05/05/18 05/05/18 06:59 18:59 Intake Total 0 Output Total 775 Balance -775 - Medications Medications: Current Medications Alprazolam (Xanax) 1 mg PO Q4H PRN; Protocol PRN Reason: Anxiety Last Admin: 05/05/18 03:40 Dose: 1 mg Chlordiazepoxide (Librium) 100 mg PO BID [facility] PRN Reason: Protocol Magnesium Oxide (Mag-Ox) 400 mg PO BID [facility] Last Admin: 05/04/18 18:33 Dose: 400 mg Multivitamins (Thera Tab) 1 tab PO 0800 [facility] Last Admin: 05/05/18 08:13 Dose: Not Given Sucralfate (Carafate Oral Susp) 1 gm PO 0630,1130,1630,2200 [facility] Thiamine HCl (Vitamin B1 Tab) 100 mg PO DAILY [facility] Last Admin: 05/04/18 11:19 Dose: 100 mg - Labs Labs: 05/05/18 05:30 05/05/18 05:30 PT 11.2 SECONDS (9.4-12.5) 05/03/18 16:00 INR 0.98 (0.93-1.08) 05/03/18 16:00 APTT 30.1 Seconds (25.1-36.5) 05/03/18 16:00 - Constitutional Appears: No Acute Distress - Head Exam Head Exam: NORMOCEPHALIC - Eye Exam Eye Exam: Normal appearance. absent: Scleral icterus - ENT Exam ENT Exam: Mucous Membranes Moist - Neck Exam Neck Exam: Normal Inspection - Respiratory Exam Respiratory Exam: NORMAL BREATHING PATTERN. absent: Rales, Wheezes, Respiratory Distress - Cardiovascular Exam Cardiovascular Exam: +S1, +S2 - GI/Abdominal Exam GI & Abdominal Exam: Soft, Normal Bowel Sounds. absent: Guarding, Tenderness, Organomegaly, Rebound - Extremities Exam Extremities Exam: absent: Calf Tenderness, Pedal Edema - Neurological Exam Neurological Exam: Alert, Awake, Oriented x3 - Skin Skin Exam: Dry, Warm Assessment and Plan - Assessment and Plan (Free Text) Assessment: Assessment: Alcohol withdrawal secondary to chronic alcohol use Transaminitis with hyperbilirubinemia - can be secondary to alcoholism v. other etiology (will rule out hemochromotosis and hepatitis) Thrombocytopenia (chronic) Plan: start carafate QID monitor h/h and for overt GI bleeding FU hemochromotosis serology, elevated iron studies FU abdominal U/S/abdominal duplex patient portal vein/hepatic vein Hold PPI for thrombocytopenia Will continue to monitor LFTs Alcohol cessation FU autoimmune markers Seen and discussed with Dr. James. <Román James V - Last Filed: 05/05/18 22:40> Objective - Vital Signs/Intake and Output Vital Signs (last 24 hours): Temp Pulse Resp BP Pulse Ox 99.8 F H 89 20 145/103 H 98 05/05/18 06:00 05/05/18 06:00 05/05/18 06:00 05/05/18 06:00 05/05/18 06:00 Intake and Output: 05/05/18 05/06/18 18:59 06:59 Intake Total 540 Balance 540 - Medications Medications: Current Medications Alprazolam (Xanax) 1 mg PO Q4H PRN; Protocol PRN Reason: Anxiety Last Admin: 05/05/18 11:35 Dose: 1 mg Folic Acid (Folic Acid) 1 mg PO DAILY [facility] Last Admin: 05/05/18 13:40 Dose: 1 mg Lorazepam (Ativan) 2 mg IV Q6 PRN; Protocol PRN Reason: alcohol withdrawals Lorazepam (Ativan) 4 mg PO Q6H [facility] PRN Reason: Protocol Last Admin: 05/05/18 19:48 Dose: 4 mg Magnesium Oxide (Mag-Ox) 400 mg PO BID [facility] Last Admin: 05/05/18 17:38 Dose: 400 mg Multivitamins (Thera Tab) 1 tab PO 0800 [facility] Last Admin: 05/05/18 08:13 Dose: Not Given Sucralfate (Carafate Oral Susp) 1 gm PO 0630,1130,1630,2200 [facility] Last Admin: 05/05/18 21:38 Dose: 1 gm Thiamine HCl (Vitamin B1 Tab) 100 mg PO DAILY [facility] Last Admin: 05/05/18 11:35 Dose: 100 mg - Labs Labs: 05/05/18 05:30 05/05/18 05:30 PT 11.2 SECONDS (9.4-12.5) 05/03/18 16:00 INR 0.98 (0.93-1.08) 05/03/18 16:00 APTT 30.1 Seconds (25.1-36.5) 05/03/18 16:00 Attending/Attestation - Attestation I have personally seen and examined this patient.: Yes I have fully participated in the care of the patient.: Yes I have reviewed all pertinent clinical information, including history, physical exam and plan: Yes Notes (Text): This is an addendum to GI progress report dictated by the Exercise Manager.The patient was seen and examined earlier. Medical records, lab studies, imagings were reviewed. Last 24 hours events reviewed. Agreed with the above treatment plan as outlined in Exercise Manager 's notes the with the addition of the following pancytopenia on neutropenic precautions Tolerating diet Abdomen softly distended Rule out hemochromatosis Hematological follow-up Monitor for impending DT Continue Carafate 22:34
[2018-05-05] MEDS: Sucralfate 1 gm/10 ml Oral Susp UD PO SCH ×3 (11:34→21:38)
[2018-05-05] MEDS: Magnesium Oxide 400 mg Tab UD PO SCH ×2 (11:35→17:38)
--- NOTE | 2018-05-05 12:55 | US ---
HISTORY: cirrhosis, elevated LFT and iron COMPARISON: 08/26/2012 TECHNIQUE: Sonographic evaluation of the abdomen. FINDINGS: LIVER: Measures 23.2 cm. Diffusely increased echogenicity of the liver parenchyma. Consistent with fatty infiltration. Smooth contour. No mass. No biliary ductal dilatation. GALLBLADDER: No evidence of cholelithiasis. Mild diffuse mural thickening up to 3 mm. No definite pericholecystic fluid appreciated. Negative sonographic Hernandez sign. COMMON BILE DUCT: Measures 7 mm. No stones. No dilatation. PANCREAS: Unremarkable as visualized. No mass. No ductal dilatation. RIGHT KIDNEY: Measures 11.6cm. Normal echogenicity. No calculus, mass, or hydronephrosis. LEFT KIDNEY: Measures 12.4cm. Normal echogenicity. No calculus, mass, or hydronephrosis. SPLEEN: Splenomegaly. The spleen measures 16.6 cm in greatest dimension. There is no focal mass. AORTA: No aneurysmal dilatation. IVC: Unremarkable. OTHER FINDINGS: None. IMPRESSION: Hepatosplenomegaly. Fatty infiltration of the liver. Mild nonspecific mural thickening of the gallbladder without evidence of cholelithiasis or cholecystitis.
--- NOTE | 2018-05-05 14:23 | PN ---
DATE: 05/05/2018 SUBJECTIVE: The patient has no complaints of any chest pain, no shortness of breath. He was having tremors yesterday and blood pressure is elevated. He had adjustment of his medications. He had a comfortable night. I spoke with the night nurse and he was able to sleep. His tremor and withdrawals are better. He has no complaints of any headaches or dizziness. No nausea. PHYSICAL EXAMINATION VITAL SIGNS: Temperature is 99.8, pulse of 89, blood pressure is 145/103, respirations 20. GENERAL: The patient is lying in bed, flat, comfortable. HEENT: No oral lesion. Anicteric sclerae. Moist mucosa. NECK: No JVD, adenopathy, or thyromegaly. CARDIOVASCULAR: S1 and S2, regular. No murmurs, rubs, or gallops. LUNGS: Clear to auscultation bilaterally. No wheeze, rales, or rhonchi. ABDOMEN: Bowel sounds are positive, soft, nontender and nondistended. EXTREMITIES: No cyanosis, clubbing or edema. LABORATORY DATA: White count of 1.2. He has a hemoglobin of 11.6, platelet count of 19. Creatinine is 0.7. The patient's AST is 683, ALT is 315. Iron saturation 88%, ferritin is 313. Hep B and hep C is negative. Abdominal ultrasound shows patent portal vein with good flow. ASSESSMENT: 1. Alcoholic withdrawal. 2. Alcoholism. 3. Thrombocytopenia. 4. Leukopenia. 5. Transaminitis. 6. Cirrhosis. 7. Problem of hemachromatosis. PLAN: The patient is currently comfortable. The patient's urine is uncollected. I will try to get another urine sample. The patient's hepatitis profile is negative. There is no portal vein thrombosis on the abdominal ultrasound. The patient's thrombocytopenia has been chronic. I did speak to Dr. Mandujano about the case. The patient is on magnesium replacement. He is on Librium 100. The patient is on vitamins and he is also on Xanax. We will continue follow closely. He may need further physical therapy. Giovanny Ni MD
--- NOTE | 2018-05-05 14:53 | CON ---
DATE: HISTORY OF PRESENT ILLNESS: In short, the patient is a 58-year-old male with reported history of alcohol use disorder. The patient was admitted on the medical side for evaluation of alcohol withdrawal symptoms. The patient is having severe alcohol use disorder and drinking alcohol about 3 liters of vodka on daily basis. The patient had history of questionable depression and that is why this marketing copywriter got involved into the patient care. The patient was seen and examined. The patient presented to be alert and oriented. The patient is in neutropenic precaution. The patient reported that he has long history of alcohol use disorder. The patient reported that he never tried to quit drinking. The patient never went to AA meetings, NA meetings as well as the patient had never been admitted to detox or rehab. The patient was advised to sign himself into the alcohol rehab, but the patient declined that offer. The patient also declined any referral to AA meetings or NA meetings. The patient's statement was "I know if I want to, I cant quit." The patient was educated about statistics and that it is very hard to quit by himself. The patient was not receptive. The patient does not want to be on any medications including naltrexone and to abuse those medications. The patient adamantly denied that he is willing to take any of the medication for his addiction. The patient reported that he is working and he supports himself. He is owing business. The patient reported that he is depressed, but not suicidal. The patient does not want to be on any medications and does not want to take any referral for followup appointments. Besides that, the patient denied hearing voices, denied seeing things. Vital signs seems to be stable but blood pressure is elevated. Temperature is 99.8, pulse is 89, blood pressure 145/103, respiration 20, oxygen saturation is 98. Medications reviewed. The patient is on Xanax 1 mg p.o. every 4 hours as needed. Ativan will be given as IV push every 6 hours as needed 2 mg. Lorazepam will be given to him 4 mg every 6 hours scheduled. Librium will be discontinued because of transaminitis and possible alcohol hepatitis. Magnesium oxide 400 mg twice a day, multivitamins, sucralfate, thiamine and folic acid will be started. MENTAL STATUS EXAMINATION: The patient appears to be alert and oriented. The patient presented to be mildly irritable and annoyed with all of the questions. Intermittent eye contact. Mood described as fine. Affect was constricted and irritable. Thought process concrete. Thought content, the patient denied visual, auditory, tactile hallucinations. Denied paranoid ideation. The patient does not present to be psychotic. The patient's insight seems to be limited. Impulses are well controlled. IMPRESSION: Alcohol use disorder, alcohol withdrawal symptoms without complications, without hallucinations, rule out substance-induced mood disorder. PLAN: Continue multivitamins, thiamine and folic acid. This marketing copywriter to continue Librium because of transaminitis. Ativan was started p.o. and IM Xanax was given as p.r.n., multivitamins, thiamine and folic acid. This marketing copywriter educated the patient about transminitis as well as about addiction, about AA meeting and NA meeting, about naltrexone for cravings, but the patient was not receptive. The patient is not suicidal, the patient is not confused. The patient does not want to have any referral for inpatient rehab. As per collateral information from the nursing staff, the patient is not agitated or aggressive. The patient deemed not to be in any imminent danger to self or others. This marketing copywriter will sign off. Should you have any questions, give me a call back. Thank you very much for letting me participate in care of your patient. Yolette Sanchez MD cc: NameMD (Delete if not dictated.) MINOR
[2018-05-06] MEDS: Sucralfate 1 gm/10 ml Oral Susp UD PO SCH ×4 (06:51→21:29)
[2018-05-06 07:44] LABS: BASO # 0.01 K/mm3 (0.0-2.0); BASO % 0.6 % (0.0-3.0); EOS % 1.1 % (1.5-5.0); GRAN # 1.13 (1.4-6.5); GRAN % 62.7 % (50.0-68.0); HEMOGLOBIN 13.3 g/dL (14.0-18.0); LYMPH # 0.5 (1.2-3.4); MEAN CELL VOLUME 85.2 fl (80.0-105.0); MEAN CORPUSCULAR HEMOGLOBIN 29.8 pg (25.0-35.0); MONO # 0.2 (0.1-0.6); MONO % 10.6 % (1.0-6.0); RBC 4.46 10^6/uL (3.5-6.1); RED CELL DISTRIBUTION WIDTH 18.6 % (11.5-14.5)
[2018-05-06 07:54] LABS: CERULOPLASMIN 20 mg/dL (18-36)
[2018-05-06 07:56] LABS: INR 1.08 (0.93-1.08); PARTIAL THROMBOPLASTIN TIME 29.2 Seconds (25.1-36.5); PROTHROMBIN TIME 12.4 SECONDS (9.4-12.5)
[2018-05-06 07:59] LABS: PLATELET COUNT 26 10^3/uL (120.0-450.0); WHITE BLOOD COUNT 1.8 10^3/ul (4.5-11.0)
[2018-05-06] MEDS: Magnesium Oxide 400 mg Tab UD PO SCH ×2 (10:00→17:44)
[2018-05-06] MEDS: Multivitamin Therapeutic Tab PO SCH (10:00)
--- NOTE | 2018-05-06 11:26 | CP.PCM.PN ---
Subjective - Date & Time of Evaluation Date of Evaluation: 05/06/18 Time of Evaluation: 10:20 - Subjective Subjective: Seen and examined at the bedside this morning, chart review. Patient reports having formed BM, no nausea, vomiting, or abdominal pain. No reports of overt GI bleed. Patient ambulating in [place], reports feeling better. Objective - Vital Signs/Intake and Output Vital Signs (last 24 hours): Temp Pulse Resp BP Pulse Ox 98.6 F 83 20 134/89 98 05/06/18 06:00 05/06/18 06:00 05/06/18 06:00 05/06/18 06:00 05/06/18 06:00 Intake and Output: 05/06/18 05/06/18 06:59 18:59 Intake Total 540 Balance 540 - Medications Medications: Current Medications Alprazolam (Xanax) 1 mg PO Q4H PRN; Protocol PRN Reason: Anxiety Last Admin: 05/05/18 11:35 Dose: 1 mg Folic Acid (Folic Acid) 1 mg PO DAILY [facility] Last Admin: 05/06/18 10:00 Dose: 1 mg Lorazepam (Ativan) 2 mg IV Q6 PRN; Protocol PRN Reason: alcohol withdrawals Lorazepam (Ativan) 4 mg PO Q6H [facility] PRN Reason: Protocol Last Admin: 05/06/18 06:51 Dose: 4 mg Magnesium Oxide (Mag-Ox) 400 mg PO BID [facility] Last Admin: 05/06/18 10:00 Dose: 400 mg Multivitamins (Thera Tab) 1 tab PO 0800 [facility] Last Admin: 05/06/18 10:00 Dose: 1 tab Sucralfate (Carafate Oral Susp) 1 gm PO 0630,1130,1630,2200 [facility] Last Admin: 05/06/18 06:51 Dose: 1 gm Thiamine HCl (Vitamin B1 Tab) 100 mg PO DAILY [facility] Last Admin: 05/06/18 10:00 Dose: 100 mg - Labs Labs: 05/06/18 07:15 05/05/18 05:30 PT 12.4 SECONDS (9.4-12.5) 05/06/18 07:15 INR 1.08 (0.93-1.08) 05/06/18 07:15 APTT 29.2 Seconds (25.1-36.5) 05/06/18 07:15 - Constitutional Appears: No Acute Distress - Eye Exam Eye Exam: Normal appearance. absent: Scleral icterus - ENT Exam ENT Exam: Mucous Membranes Moist - Neck Exam Neck Exam: Normal Inspection - Respiratory Exam Respiratory Exam: NORMAL BREATHING PATTERN. absent: Respiratory Distress - Cardiovascular Exam Cardiovascular Exam: +S1, +S2 - GI/Abdominal Exam GI & Abdominal Exam: Soft, Normal Bowel Sounds. absent: Guarding, Tenderness, Organomegaly, Rebound - Extremities Exam Extremities Exam: absent: Calf Tenderness, Pedal Edema - Neurological Exam Neurological Exam: Alert, Awake, Oriented x3 - Skin Skin Exam: Dry, Warm Assessment and Plan - Assessment and Plan (Free Text) Assessment: Assessment: Alcohol withdrawal secondary to chronic alcohol use Transaminitis with hyperbilirubinemia - can be secondary to alcoholism v. other etiology (will rule out hemochromotosis and hepatitis) Thrombocytopenia (chronic) Neutropenia Plan: on neutropenic precaution continue carafate QID monitor h/h and for overt GI bleeding FU hemochromotosis serology, elevated iron studies abdominal U/S: fatty lever/heaptosplenomegaly abdominal duplex:patent portal vein/hepatic vein Hold PPI for thrombocytopenia Will continue to monitor LFTs Alcohol cessation FU autoimmune markers hematology FU Seen and discussed with Dr. James.
--- NOTE | 2018-05-06 13:14 | PN ---
DATE: 05/06/2018 SUBJECTIVE: The patient has no complaints of any chest pain. No shortness of breath, no headaches, no dizziness. PHYSICAL EXAMINATION: VITAL SIGNS: Temperature is 98.7, pulse of 82, blood pressure is 99/67, respirations 18. GENERAL: The patient is lying in bed, flat, comfortable. HEENT: No oral lesion. Anicteric sclerae. Moist mucosa. NECK: No JVD, adenopathy, or thyromegaly. CARDIOVASCULAR: S1 and S2, regular. No murmurs, rubs, or gallops. LUNGS: Clear to auscultation bilaterally. No wheeze, rales, or rhonchi. ABDOMEN: Bowel sounds are positive. Soft, nontender and nondistended. EXTREMITIES: No cyanosis, clubbing or edema. LABORATORY DATA: White count of 1.8, hemoglobin 13.3, creatinine is 0.7, platelets 26. ASSESSMENT: 1. Alcohol withdrawal. 2. Alcoholism. 3. Thrombocytopenia. 4. Leukopenia. 5. Transaminitis. 6. Cirrhosis. 7. Probable hemachromatosis. PLAN: The patient is able to ambulate, he was not able to ambulate before. He is not complaining of any pain. He is able to sleep overnight. The patient is on Ativan. The patient is on magnesium replacement. He is on Xanax as needed. The patient is now on Ativan 4 mg every 6 hours. The patient is on heart-healthy diet. Continue to follow closely. Giovanny Ni MD
[2018-05-07] MEDS: Sucralfate 1 gm/10 ml Oral Susp UD PO SCH ×4 (06:20→21:56)
[2018-05-07 06:44] LABS: HEMOGLOBIN 11.7 g/dL (14.0-18.0); MEAN CELL VOLUME 86.5 fl (80.0-105.0); MEAN CORPUSCULAR HEMOGLOBIN 29.2 pg (25.0-35.0); MEAN CORPUSCULAR HGB CONC 33.7 g/dl (31.0-37.0); RBC 4.01 10^6/uL (3.5-6.1); RED CELL DISTRIBUTION WIDTH 18.8 % (11.5-14.5)
[2018-05-07 06:53] LABS: PLATELET COUNT 26 10^3/uL (120.0-450.0); WHITE BLOOD COUNT 1.6 10^3/ul (4.5-11.0)
[2018-05-07 07:22] LABS: ALB/GLOB RATIO 1.4 (1.1-1.8); ALBUMIN 4.2 g/dL (3.0-4.8); ALT/SGPT 258 U/L (7-56); AST/SGOT 253 U/L (17-59); BLOOD UREA NITROGEN 17 mg/dL (7-21); CALCIUM 9.1 mg/dL (8.4-10.5); GFR AFRICAN-AMERICAN > 60; GFR NON-AFRICAN AMERICAN > 60
--- NOTE | 2018-05-07 09:25 | PN ---
DATE: 05/07/2018 FOLLOWUP NOTE SUBJECTIVE: He is comfortable in bed, in no acute distress. No signs of withdrawal. He is ambulating well. He still has leukopenia and thrombocytopenia, likely related to heavy alcohol abuse. He also has splenomegaly. No bleeding from any site. He received platelet transfusion few days ago. He has pancytopenia for the past few years. Bone marrow evaluation done in 2011 was unremarkable. REVIEW OF SYSTEMS: As per HPI. Rest of 12-point review of systems reviewed negative. PHYSICAL EXAMINATION: GENERAL: Comfortable in bed, in no acute distress. VITAL SIGNS: Temperature 98.7, heart rate 80 per minute, blood pressure 110/70. HEENT: Pallor positive. NECK: No lymphadenopathy. CHEST: Air entry present and equal bilateral. No added sound. CARDIOVASCULAR: S1, S2 normal. No murmur. No gallop. ABDOMEN: Soft, nontender. No hepatosplenomegaly. EXTREMITY: No edema. ACCOUNT DIRECTOR: Alert and oriented x3. No focal sensorimotor deficit. MEDICATIONS: Xanax 1 mg every 4 hours p.r.n., folic acid 1 mg daily, Ativan every 6 hours p.r.n., magnesium 400 mg p.o. b.i.d., multivitamin, Carafate, Pyridoxine, thiamine 100 mg daily. ASSESSMENT: 1. Ethyl alcohol abuse. 2. Anemia. 3. Pancytopenia. 4. Splenomegaly. 5. Possible cirrhosis of the liver. PLAN: Blood counts are currently stable. Has not required platelet transfusions since 05/04/2018. Hemoglobin is 11.7. He has splenomegaly, evaluated by GI. Hepatitis C serology negative. He is followed by Psych also for withdrawal and alcohol abuse. We will continue to monitor closely. He is currently stable. Jailene Mandujano MD
[2018-05-07] MEDS: Multivitamin Therapeutic Tab PO SCH (09:58)
[2018-05-07] MEDS: Magnesium Oxide 400 mg Tab UD PO SCH ×2 (09:58→18:00)
--- NOTE | 2018-05-07 10:48 | CP.PCM.PN ---
<Bev Higginbotham - Last Filed: 05/07/18 10:49> Subjective - Date & Time of Evaluation Date of Evaluation: 05/07/18 Time of Evaluation: 10:44 - Subjective Subjective: S&E at bedside, chart reviewed, ambulating in hallway with steady gait. Wants to go home. No N/V or abdominal pain, having formed BM, no melena or BRBPR. No acute overnight events reported. Objective - Vital Signs/Intake and Output Vital Signs (last 24 hours): Temp Pulse Resp BP Pulse Ox 98.5 F 80 20 160/80 H 99 05/07/18 06:00 05/07/18 06:00 05/07/18 06:00 05/07/18 06:00 05/07/18 06:00 Intake and Output: 05/07/18 05/07/18 06:59 18:59 Intake Total 240 Balance 240 - Medications Medications: Current Medications Alprazolam (Xanax) 1 mg PO Q4H PRN; Protocol PRN Reason: Anxiety Last Admin: 05/05/18 11:35 Dose: 1 mg Folic Acid (Folic Acid) 1 mg PO DAILY [facility] Last Admin: 05/07/18 09:58 Dose: 1 mg Lorazepam (Ativan) 2 mg IV Q6 PRN; Protocol PRN Reason: alcohol withdrawals Lorazepam (Ativan) 4 mg PO Q6H [facility] PRN Reason: Protocol Last Admin: 05/07/18 06:22 Dose: 4 mg Magnesium Oxide (Mag-Ox) 400 mg PO BID [facility] Last Admin: 05/07/18 09:58 Dose: 400 mg Multivitamins (Thera Tab) 1 tab PO 0800 [facility] Last Admin: 05/07/18 09:58 Dose: 1 tab Sucralfate (Carafate Oral Susp) 1 gm PO 0630,1130,1630,2200 [facility] Last Admin: 05/07/18 06:20 Dose: 1 gm Thiamine HCl (Vitamin B1 Tab) 100 mg PO DAILY [facility] Last Admin: 05/07/18 09:58 Dose: 100 mg - Labs Labs: 05/07/18 06:10 05/07/18 06:10 PT 12.4 SECONDS (9.4-12.5) 05/06/18 07:15 INR 1.08 (0.93-1.08) 05/06/18 07:15 APTT 29.2 Seconds (25.1-36.5) 05/06/18 07:15 - Constitutional Appears: No Acute Distress - Eye Exam Eye Exam: Normal appearance - ENT Exam ENT Exam: Mucous Membranes Moist - Neck Exam Neck Exam: Normal Inspection - Respiratory Exam Respiratory Exam: NORMAL BREATHING PATTERN. absent: Respiratory Distress - GI/Abdominal Exam GI & Abdominal Exam: Soft, Normal Bowel Sounds. absent: Guarding, Tenderness, Organomegaly, Rebound - Extremities Exam Extremities Exam: absent: Calf Tenderness, Pedal Edema - Neurological Exam Neurological Exam: Alert, Awake, Oriented x3 - Skin Skin Exam: Dry, Warm Assessment and Plan - Assessment and Plan (Free Text) Assessment: Assessment: Alcohol withdrawal secondary to chronic alcohol use Transaminitis with hyperbilirubinemia - can be secondary to alcoholism v. other etiology (will rule out hemochromotosis and hepatitis) Thrombocytopenia (chronic) Neutropenia Plan: continue carafate QID monitor h/h and for overt GI bleeding FU hemochromotosis serology, elevated iron studies abdominal U/S: fatty lever/heaptosplenomegaly abdominal duplex:patent portal vein/hepatic vein Hold PPI for thrombocytopenia continue to monitor LFTs Alcohol cessation FU autoimmune markers on MVI/thiamine/folic acid hematology FU Seen and discussed with Dr. James. <Román James V - Last Filed: 05/08/18 00:52> Objective - Vital Signs/Intake and Output Vital Signs (last 24 hours): Temp Pulse Resp BP Pulse Ox 98.1 F 70 18 138/91 H 96 05/07/18 22:00 05/07/18 22:00 05/07/18 22:00 05/07/18 22:00 05/07/18 22:00 Intake and Output: 05/07/18 05/08/18 18:59 06:59 Intake Total 780 720 Balance 780 720 - Medications Medications: Current Medications Alprazolam (Xanax) 1 mg PO Q4H PRN; Protocol PRN Reason: Anxiety Last Admin: 05/05/18 11:35 Dose: 1 mg Folic Acid (Folic Acid) 1 mg PO DAILY [facility] Last Admin: 05/07/18 09:58 Dose: 1 mg Lorazepam (Ativan) 2 mg IV Q6 PRN; Protocol PRN Reason: alcohol withdrawals Lorazepam (Ativan) 4 mg PO Q6H [facility] PRN Reason: Protocol Last Admin: 05/07/18 21:56 Dose: 4 mg Magnesium Oxide (Mag-Ox) 400 mg PO BID [facility] Last Admin: 05/07/18 18:00 Dose: Not Given Multivitamins (Thera Tab) 1 tab PO 0800 [facility] Last Admin: 05/07/18 09:58 Dose: 1 tab Sucralfate (Carafate Oral Susp) 1 gm PO 0630,1130,1630,2200 [facility] Last Admin: 05/07/18 21:56 Dose: 1 gm Thiamine HCl (Vitamin B1 Tab) 100 mg PO DAILY [facility] Last Admin: 05/07/18 09:58 Dose: 100 mg - Labs Labs: 05/07/18 06:10 05/07/18 06:10 PT 12.4 SECONDS (9.4-12.5) 05/06/18 07:15 INR 1.08 (0.93-1.08) 05/06/18 07:15 APTT 29.2 Seconds (25.1-36.5) 05/06/18 07:15 Attending/Attestation - Attestation I have personally seen and examined this patient.: Yes I have fully participated in the care of the patient.: Yes I have reviewed all pertinent clinical information, including history, physical exam and plan: Yes Notes (Text): This is an addendum to GI progress report dictated by Bev Higginbotham APN.The patient was seen and examined earlier. Medical records, lab studies, imagings were reviewed. Last 24 hours events reviewed. Agreed with the above treatment plan as outlined in Bev Higginbotham APN's notes the with the addition of the following On examination abdomen soft no tenderness continue Carafate Follow-up hemochromatosis gene testing impression overall, alcohol Elective GI workup 05/08/18 00:50
[2018-05-07 23:06] VITALS: PULSE 70
[2018-05-08] MEDS: Sucralfate 1 gm/10 ml Oral Susp UD PO SCH (06:18)
[2018-05-08 08:41] VITALS: BP 156/90; RESP 20; TEMP 98; O2SAT 98
== END 2018-05-08 08:42 | disposition left against medical advice (07) | DRG 749 ==
LOC: ED 15:43 → ERH 17:29 → 2RNO 18:58 → 5RSO 05-05 12:24
PROVIDERS: ADMIT Internal Medicine Nephrology; ATTEND Internal Medicine Nephrology
PROC: 30233R1 Transfusion of Nonautologous Platelets into Peripheral Vein, Percutaneous Approach (ICD-10-PCS; principal; 2018-05-04)
DX: F10.239 Alcohol dependence with withdrawal, unspecified (principal); D61.818 Other pancytopenia; K70.30 Alcoholic cirrhosis of liver without ascites; F41.9 Anxiety disorder, unspecified; I10 Essential (primary) hypertension; M10.9 Gout, unspecified; F14.90 Cocaine use, unspecified, uncomplicated; R16.1 Splenomegaly, not elsewhere classified; Y90.8 Blood alcohol level of 240 mg/100 ml or more; Z91.81 History of falling

== ENCOUNTER 2018-05-25 16:59 | Emergency (ER) | payer MEDICAID ==
[2018-05-25 17:38] VITALS: RESP 18; TEMP 97.5; BMI 29.0
--- NOTE | 2018-05-25 17:46 | ED PDOC ---
Arrival/HPI - General Time Seen by Provider: 05/25/18 17:25 Historian: Patient - History of Present Illness Narrative History of Present Illness (Text): 05/25/18 17:46 This 58 yo male with pmh alcohol abuse, throbocytopenia, presents to this ED c/ o fall x NURSE WOUND. Patient admits drinking an UKN amount of alcohol today. He said he fell on his knee. Patient denies other complains. Patient denies knee pain , denies hip pain, sob, fever weakness, paresthesias, or abnormal gait. Patient noted multiple fall due to alcohol abuse. Denies recent head injury. Time/Duration: Other (see hpi) Context: Home Past Medical History - Provider Review Nursing Documentation Reviewed: Yes - Tetanus Immunization Tetanus Immunization: Unknown - Past Medical History Past Medical History: No Previous - Cardiac Hx Hypertension: Yes - Pulmonary Hx Respiratory Disorders: No - Neurological Hx Neurological Disorder: No - HEENT Hx HEENT Disorder: No - Renal Hx Renal Disorder: No - Endocrine/Metabolic Hx Endocrine Disorders: No - Hematological/Oncological Hx Blood Disorders: Yes (Thrombocytopenia) - Integumentary Hx Dermatological Disorder: No - Musculoskeletal/Rheumatological Hx Falls: No Hx Gout: Yes - Gastrointestinal Hx Gastrointestinal Disorders: No - Genitourinary/Gynecological Hx Genitourinary Disorders: No - Psychiatric Hx Psychophysiologic Disorder: No Hx Anxiety: Yes Hx Substance Use: No - Past Surgical History Past Surgical History: No Previous - Suicidal Assessment Feels Threatened In Home Enviroment: No Family/Social History - Physician Review Nursing Documentation Reviewed: Yes Family/Social History: Other (noncontributory) Smoking Status: Never Smoked Hx Alcohol Use: Yes Hx Substance Use: No Hx Substance Use Treatment: No Allergies/Home Meds Allergies/Adverse Reactions: Allergies No Known Allergies Allergy (Verified 05/03/18 15:56) Review of Systems - Review of Systems Constitutional: Normal. absent: Fatigue, Weight Change, Fevers, Night Sweats Eyes: Normal ENT: Normal Respiratory: Normal Cardiovascular: Normal Gastrointestinal: Normal Genitourinary Male: Normal Musculoskeletal: Other (see hpi) Skin: Normal Neurological: Normal Endocrine: Normal Hemo/Lymphatic: Normal Psychiatric: Other (alcohol abuse) Physical Exam Vital Signs Temp Pulse Resp BP Pulse Ox 05/26/18 03:04 88 18 136/76 99 05/26/18 03:00 88 18 136/76 99 05/25/18 17:28 97.5 F L 90 18 147/97 H 97 Temperature: Afebrile Blood Pressure: Normal Pulse: Regular Respiratory Rate: Normal Appearance: Positive for: Well-Appearing, Non-Toxic, Comfortable Pain Distress: None - Systems Exam Head: Present: Atraumatic, Normocephalic, Other (no raccoon sign. No beasley sign) Pupils: Present: PERRL, Other (no hyphema) Extroacular Muscles: Present: EOMI Conjunctiva: Present: Normal Mouth: Present: Moist Mucous Membranes Pharnyx: Present: Normal Nose (External): Present: Atraumatic Nose (Internal): Present: Normal Inspection Neck: Present: Normal Range of Motion Respiratory/Chest: Present: Clear to Auscultation, Good Air Exchange. No: Respiratory Distress, Accessory Muscle Use Cardiovascular: Present: Regular Rate and Rhythm, Normal S1, S2. No: Murmurs Abdomen: No: Tenderness, Distention, Peritoneal Signs Back: Present: Normal Inspection Upper Extremity: Present: Normal Inspection. No: Cyanosis, Edema Lower Extremity: Present: NORMAL PULSES, Normal ROM, Swelling, Erythema, Temperature Abnormalties, Neurovascularly Intact, Capillary Refill < 2 s, Other ((+) healing right anterior knee wound with surrounding erythema, extending to just above right ankle, anteriorly.). No: Edema, CALF TENDERNESS Neurological: Present: GCS=15, CN II-XII Intact, Speech Normal, Motor Func Grossly Intact, Normal Sensory Function, Normal Cerebellar Funct, Gait Normal Skin: Present: Warm, Dry, Normal Color, Abrasion (abrasion on b/l knee. right knee abrasion with surrounding celluliitis. no drainage). No: Rashes Psychiatric: Present: Alert, Intoxicated Medical Decision Making ED Course and Treatment: 05/26/18 03:08 Patient feels better. Patient is alert and oriented x 3. Patient has a normal speech, and gait. No neuro focal deficits. Patient understood plan to f/u pmd in 1-2 days, and to take medication as instructed. To return to emergency if symptoms worsen. Re-evaluation Time: 07:00 Reassessment Condition: Re-examined, Improved - Lab Interpretations Lab Results: 05/25/18 19:52 05/25/18 19:52 Lab Results 05/25/18 19:52: Alcohol, Quantitative 410 H* 05/25/18 19:52: Salicylates < 1 L, Acetaminophen < 10.0 L 05/25/18 19:52: Sodium 149 H, Potassium 4.1, Chloride 111 H, Carbon Dioxide 23, Anion Gap 19, BUN 10, Creatinine 0.7 L, Est GFR ( Amer) > 60, Est GFR ( Non-Af Amer) > 60, Random Glucose 89, Calcium 8.2 L, Magnesium 1.9, Total Bilirubin 1.3, AST 102 H D, ALT 98 H, Alkaline Phosphatase 73, Total Protein 7.2 , Albumin 4.0, Globulin 3.2, Albumin/Globulin Ratio 1.2 05/25/18 19:52: WBC 3.7 L D, RBC 4.21, Hgb 12.3 L, Hct 36.5 L, MCV 86.7, MCH 29.2, MCHC 33.7, RDW 18.5 H, Plt Count 69 L, MPV 10.7, Gran % 62.4, Lymph % ( Auto) 32.2, [place] % (Auto) 5.4, Eos % (Auto) 0.0 L, Baso % (Auto) 0.0, Gran # 2.31, Lymph # (Auto) 1.2, [place] # (Auto) 0.2, Eos # (Auto) 0.0, Baso # (Auto) 0.00 05/25/18 17:20: Urine Color Yellow, Urine Appearance Clear, Urine pH 6.0, Ur Specific [place] <= 1.005, Urine Protein Negative, Urine Glucose (UA) Negative, Urine Ketones Negative, Urine Blood Negative, Urine Nitrate Negative, Urine Bilirubin Negative, Urine Urobilinogen 0.2, Ur Leukocyte Esterase Negative I have reviewed the lab results: Yes Interpretation: No sign. chg./baseline - RAD Interpretation Narrative RAD Interpretations (Text): Venous Doppler right leg was no DVT Radiology Orders: 05/25/18 17:52 CHEST ONE VIEW [RAD] Stat DUPLEX LOWER EXTRM VEIN RIGHT [US] Stat 05/25/18 18:18 HEAD W/O CONTRAST [CT] Stat - Medication Orders Current Medication Orders: Discontinued Medications Haloperidol Lactate (Haldol) 5 mg IVP STAT STA PRN Reason: Protocol Stop: 05/25/18 18:12 Last Admin: 05/25/18 18:20 Dose: Not Given Non-Admin Reason: Patient Refused Sodium Chloride (Sodium Chloride 0.9%) 1,000 mls @ 999 mls/hr IV .Q1H1M STA Stop: 05/25/18 18:53 Last Admin: 05/25/18 17:55 Dose: Not Given Non-Admin Reason: Patient Refused Piperacillin Sod/Tazobactam Sod (Zosyn 4.5 Gm In Ns 100ml) 4.5 gm in 100 mls @ 200 mls/hr IVPB STAT STA PRN Reason: Protocol Stop: 05/25/18 18:27 Last Admin: 05/25/18 18:00 Dose: Not Given Non-Admin Reason: Patient Refused Lorazepam (Ativan) 2 mg IVP ONCE ONE PRN Reason: Protocol Stop: 05/25/18 18:07 Last Admin: 05/25/18 18:20 Dose: Not Given Non-Admin Reason: Patient Refused Tetanus/Reduced Diphtheria/Acell Pertussis (Boostrix Vaccine Inj) 0.5 ml IM .ONCE ONE Stop: 05/25/18 18:22 Last Admin: 05/25/18 18:30 Dose: Immunization Registry Document 05/25/18 18:30 RADHA (Rec: 05/26/18 01:51 RADHA [id number]) Immunization Registry Consent Date 05/25/18 Disposition/Present on Arrival - Present on Arrival Any Indicators Present on Arrival: No History of DVT/PE: No History of Uncontrolled Diabetes: No Urinary Catheter: No History Surgical Site Infection Following: None - Disposition Have Diagnosis and Disposition been Completed?: Yes Diagnosis: Cellulitis, Alcohol abuse Disposition: HOME/ ROUTINE Disposition Time: 03:30 Patient Plan: Discharge Condition: IMPROVED Discharge Instructions (ExitCare): Cellulitis (Skin Infection), Adult (DC) Additional Instructions: Call private doctor for follow up visit in 1-2 . Take medication as instructed with food. Clean wound daily with soap and water. Return to [facility] if symptoms worsen. Stop abusing alcohol Prescriptions: Amoxicillin/Clavulanate [Augmentin 875 MG-125 MG] 1 tab PO BID #20 tab Referrals: [facility] [Outside] - Follow up with primary [facility] [Outside] - Follow up with primary
[2018-05-25] MEDS ORDERED: Sodium Chloride 0.9% 1,000 ML IV STA (17:53)
[2018-05-25] MEDS ORDERED: Piperacill/Tazo 4.5gm in NS 4.5 GM/100 ML BAG IVPB STA (17:58)
[2018-05-25] MEDS ORDERED: TDAP Vaccine 0.5 mL Syr IM ONE (18:21)
--- NOTE | 2018-05-25 18:48 | RAD ---
PROCEDURE: CHEST RADIOGRAPH, 1 VIEW HISTORY: admission COMPARISON: Chest radiograph dated 05/03/2018. FINDINGS: LUNGS: Clear. PLEURA: No pneumothorax or pleural fluid seen. CARDIOVASCULAR: Cardiomediastinal silhouette stably enlarged. OSSEOUS STRUCTURES: Unchanged. VISUALIZED UPPER ABDOMEN: Normal. OTHER FINDINGS: None. IMPRESSION: No active disease.
--- NOTE | 2018-05-25 18:50 | CT ---
PROCEDURE: CT HEAD WITHOUT CONTRAST. HISTORY: fall COMPARISON: CT head dated 05/03/2018. TECHNIQUE: Axial computed tomography images were obtained through the head/brain without intravenous contrast. Radiation dose: Total exam DLP = 3332.1 mGy-cm. This CT exam was performed using one or more of the following dose reduction techniques: Automated exposure control, adjustment of the mA and/or kV according to patient size, and/or use of iterative reconstruction technique. FINDINGS: HEMORRHAGE: No intracranial hemorrhage. BRAIN: No mass effect or edema. Mild atrophy. Chronic microvascular ischemic changes. VENTRICLES: Unremarkable. No hydrocephalus. CALVARIUM: Unremarkable. PARANASAL SINUSES: Unremarkable as visualized. No significant inflammatory changes. MASTOID AIR CELLS: Unremarkable as visualized. No inflammatory changes. OTHER FINDINGS: None. IMPRESSION: No acute intracranial pathology.
[2018-05-25 19:44] LABS: URINE BILIRUBIN NEGATIVE (NEGATIVE); URINE BLOOD NEGATIVE (NEGATIVE); URINE GLUCOSE (UA) NEGATIVE (NEGATIVE); URINE LEUKOCYTE ESTERASE NEGATIVE Leu/uL (NEGATIVE); URINE PROTEIN NEGATIVE mg/dL (<30 mg/dL); URINE UROBILINOGEN 0.2 E.U./dL (<1 E.U./dL)
[2018-05-25 20:04] LABS: URINE APPEARANCE CLEAR (CLEAR); URINE COLOR YELLOW (YELLOW)
[2018-05-25 20:07] LABS: GRAN # 2.31 (1.4-6.5); GRAN % 62.4 % (50.0-68.0); HEMOGLOBIN 12.3 g/dL (14.0-18.0); LYMPH # 1.2 (1.2-3.4); LYMPH % 32.2 % (22.0-35.0); MEAN CELL VOLUME 86.7 fl (80.0-105.0); MEAN CORPUSCULAR HEMOGLOBIN 29.2 pg (25.0-35.0); MEAN CORPUSCULAR HGB CONC 33.7 g/dl (31.0-37.0); MEAN PLATELET VOLUME 10.7 fl (7.0-11.0); MONO # 0.2 (0.1-0.6); MONO % 5.4 % (1.0-6.0); RBC 4.21 10^6/uL (3.5-6.1); RED CELL DISTRIBUTION WIDTH 18.5 % (11.5-14.5); WHITE BLOOD COUNT 3.7 10^3/ul (4.5-11.0)
[2018-05-25 20:26] LABS: ALB/GLOB RATIO 1.2 (1.1-1.8); ALT/SGPT 98 U/L (7-56); AST/SGOT 102 U/L (17-59); BLOOD UREA NITROGEN 10 mg/dL (7-21); CALCIUM 8.2 mg/dL (8.4-10.5); GFR AFRICAN-AMERICAN > 60; GFR NON-AFRICAN AMERICAN > 60
[2018-05-25 20:43] LABS: ACETAMINOPHEN < 10.0 ug/ml (10.0-20.0); SALICYLATE < 1 mg/dL (2.0-20.0)
[2018-05-26 03:03] VITALS: BP 136/76; PULSE 88; O2SAT 99
--- NOTE | 2018-05-26 09:37 | US ---
PROCEDURE: Right lower extremity venous US HISTORY: Leg pain and swelling. Evaluate for DVT. PHYSICIAN(S): William Anderson M.D. TECHNIQUE: Duplex sonography and color-flow Doppler with graded compression were used to evaluate the deep venous system of the right lower extremity. FINDINGS: The visualized deep venous system of the right lower extremity is sonographically normal and compressible. Normal waveforms and augmentation are seen. There is no sonographic evidence for deep venous thrombosis in the visualized segments of the right lower extremity. IMPRESSION: 1. No sonographic evidence for deep venous thrombosis in the visualized segments of the right lower extremity.
--- NOTE | 2018-05-26 09:56 | CARD ---
APPROVED REPORT EKG Measurement Heart [id number] CT [id number] [id number] <Conclusion> Normal sinus rhythm Improved repolarization c/w ECG 05/03/18
== END 2018-05-26 03:04 | disposition home or self-care (01) ==
LOC: ED 16:59
DX: F10.10 Alcohol abuse, uncomplicated (principal); Y90.8 Blood alcohol level of 240 mg/100 ml or more; L03.115 Cellulitis of right lower limb; I10 Essential (primary) hypertension; D69.6 Thrombocytopenia, unspecified
CPT/HCPCS: 70450; 71045; 80053; 80320; 80329; 81003; 83735; 85025; 93005; 93971; 99284; J1630; J2060

== ENCOUNTER 2018-07-27 20:07 | Inpatient (IN) | payer MEDICAID ==
[2018-07-27 20:35] VITALS: BMI 29.7
--- NOTE | 2018-07-27 20:54 | ED PDOC ---
Arrival/HPI - General Chief Complaint: Alcohol Ingestion Time Seen by Provider: 07/27/18 20:32 Historian: Patient - History of Present Illness Narrative History of Present Illness (Text): 07/27/18 20:30 A 58 year old male, whose past medical history includes EtOH abuse, who is brought in by family to the emergency department due to concern for patient's alcoholism. Patient reports he drinks 2 pints of hard liquor today, and last drink was approximately 20 minutes ago [employer]. Also, patient requests to be given Ativan as he claims he will go into withdrawal wihtout the medication. Patient denies of any symptomatic complaints at this time, however he does admit to experiencing some abdominal pain intermittently but not at this time while here in the ER. PMD: Dr. Garrett Anderson (who is being covered by Dr. Ortiz, who is being covered by Dr. Fuchs) Past Medical History - Provider Review Nursing Documentation Reviewed: Yes - Tetanus Immunization Tetanus Immunization: Unknown - Past Medical History Past Medical History: No Previous - Cardiac Hx Hypertension: Yes - Pulmonary Hx Respiratory Disorders: No - Neurological Hx Neurological Disorder: No - HEENT Hx HEENT Disorder: No - Renal Hx Renal Disorder: No - Endocrine/Metabolic Hx Endocrine Disorders: No - Hematological/Oncological Hx Blood Disorders: Yes (Thrombocytopenia) - Integumentary Hx Dermatological Disorder: No - Musculoskeletal/Rheumatological Hx Falls: No Hx Gout: Yes - Gastrointestinal Hx Gastrointestinal Disorders: No - Genitourinary/Gynecological Hx Genitourinary Disorders: No - Psychiatric Hx Psychophysiologic Disorder: No Hx Anxiety: Yes Hx Substance Use: No - Past Surgical History Past Surgical History: No Previous - Anesthesia Hx Anesthesia: Yes - Suicidal Assessment Feels Threatened In Home Enviroment: No Family/Social History - Physician Review Nursing Documentation Reviewed: Yes Family/Social History: No Known Family HX Smoking Status: Never Smoked Hx Alcohol Use: Yes Hx Substance Use: No Hx Substance Use Treatment: No Allergies/Home Meds Allergies/Adverse Reactions: Allergies No Known Allergies Allergy (Verified 07/27/18 20:35) Review of Systems - Physician Review All systems were reviewed & negative as marked: Yes - Review of Systems Constitutional: absent: Fevers, Night Sweats Respiratory: absent: SOB, Cough Cardiovascular: absent: Chest Pain Gastrointestinal: absent: Abdominal Pain, Diarrhea, Nausea, Vomiting Neurological: absent: Headache, Dizziness Physical Exam Vital Signs Reviewed: Yes Vital Signs Temp Pulse Resp BP Pulse Ox 07/27/18 22:20 98.2 F 89 18 147/89 95 07/27/18 20:21 98.2 F 104 H 18 158/101 H 96 Temperature: Afebrile Blood Pressure: Normal Pulse: Regular Respiratory Rate: Normal Appearance: Positive for: Other (mildly intoxicated) Pain Distress: None Mental Status: Positive for: Alert and Oriented X 3 - Systems Exam Head: Present: Atraumatic, Normocephalic Pupils: Present: PERRL Extroacular Muscles: Present: EOMI Conjunctiva: Present: Normal Mouth: Present: Moist Mucous Membranes Neck: Present: Normal Range of Motion Respiratory/Chest: Present: Clear to Auscultation, Good Air Exchange. No: Respiratory Distress, Accessory Muscle Use Cardiovascular: Present: Regular Rate and Rhythm, Normal S1, S2. No: Murmurs Abdomen: No: Tenderness, Distention, Peritoneal Signs Back: Present: Normal Inspection Upper Extremity: Present: Normal Inspection. No: Cyanosis, Edema Lower Extremity: Present: Normal Inspection. No: Edema Neurological: Present: GCS=15, CN II-XII Intact, Speech Normal Skin: Present: Warm, Dry, Normal Color. No: Rashes Psychiatric: Present: Alert, Oriented x 3, Normal Insight, Normal Concentration , Intoxicated (mildly) Medical Decision Making ED Course and Treatment: 07/27/18 20:38 Impression: 58 year old male with intoxication. Plan: -- EKG -- Labs -- Reassess and disposition Progress Notes: 07/27/2018 20:23 EKG: Ordered, reviewed, and independently interpreted the EKG. Rate : 97 BPM Rhythm : NSR Interpretation : No ST-segment elevations or depressions, no T-wave inversions, normal intervals. Comparison : No previous EKG for comparison. Patient with no tremors, HR in the 90's. However will admit for thrombocytopenia (which was previously worked up during last admission in April) and probable pending EtOH withdrawal. Patient with no active bleeding at this time. No complaints of abdominal pain. Case discussed with Dr. Fuchs covering Dr. Ni, whom Dr. Anderson requested for admission. Dr. Fuchs accepts patient for admission. Patient booked to [facility]. Lab results discussed with patient. He is amenable to admission. - Lab Interpretations Lab Results: 07/27/18 20:53 07/27/18 20:53 Lab Results 07/27/18 20:53: Alcohol, Quantitative 332 H* 07/27/18 20:53: Sodium 144, Potassium 3.9, Chloride 103, Carbon Dioxide 21, Anion Gap 24 H, BUN 17, Creatinine 0.8, Est GFR ( Amer) > 60, Est GFR ( Non-Af Amer) > 60, Random Glucose 111 H, Calcium 8.5, Phosphorus 2.9, Magnesium 1.5 L, Total Bilirubin 2.8 H, AST 363 H D, ALT 110 H, Alkaline Phosphatase 132 H D, Total Protein 7.7, Albumin 3.9, Globulin 3.8, Albumin/Globulin Ratio 1.0 L 07/27/18 20:53: PT 13.3 H, INR 1.16, APTT 29.9 07/27/18 20:53: WBC 4.4 L, RBC 4.05, Hgb 12.7 L, Hct 37.4 L, MCV 92.3 D, MCH 31.4, MCHC 34.0, RDW 15.2 H, Plt Count 70 L, Gran % 74.7 H, Lymph % (Auto) 17.6 L, [place] % (Auto) 7.7 H, Eos % (Auto) 0.0 L, Baso % (Auto) 0.0, Gran # 3.30, Lymph # (Auto) 0.8 L, [place] # (Auto) 0.3, Eos # (Auto) 0.0, Baso # (Auto) 0.00 - Medication Orders Current Medication Orders: Acetaminophen (Tylenol 325mg Tab) 650 mg PO Q6H PRN PRN Reason: Fever >100.4 F Chlordiazepoxide (Librium) 25 mg PO Q6H KRISTIN PRN Reason: Protocol Dextrose/Sodium Chloride (Dextrose 5%/0.45% Ns 1000 Ml) 1,000 mls @ 125 mls/hr IV .Q8H [facility] Last Admin: 07/27/18 22:34 Dose: Multivitamins/Vitamin C 10 ml/Thiamine HCl 100 mg/ Folic Acid 1 mg/ Sodium Chloride 1,011.2 mls @ 125 mls/hr IV .Q8H6M ONE Stop: 07/28/18 06:38 Lorazepam (Ativan) 2 mg IVP Q4H PRN; Protocol PRN Reason: Symptoms of alcohol withdrawl Pantoprazole Sodium (Protonix Inj) 40 mg IVP DAILY KRISTIN Thiamine HCl (Vitamin B1 Tab) 100 mg PO DAILY KRISTIN Discontinued Medications Chlordiazepoxide (Librium) 25 mg PO STAT STA PRN Reason: Protocol Stop: 07/27/18 21:52 Last Admin: 07/27/18 22:14 Dose: 25 mg Magnesium Sulfate/Dextrose (Magnesium Sulfate 1 Gm/100 Ml D5w) 1 gm in 100 mls @ 100 mls/hr IV ONCE ONE Stop: 07/27/18 22:54 Last Admin: 07/27/18 22:14 Dose: 100 mls/hr eMAR Start Stop Document 07/27/18 22:14 HI (Rec: 07/27/18 22:14 IA [id number]) Intravenous Solution Start Date 07/27/18 Start Time 22:14 Multivitamins/Vitamin C 10 ml/Thiamine HCl 100 mg/ Folic Acid 1 mg/ Sodium Chloride 1,011.2 mls @ 1,000 mls/hr IV .Q1H1M ONE Stop: 07/27/18 23:12 - Scribe Statement The provider has reviewed the documentation as recorded by the Ken Powers Provider Scribe Provider Scribe Attestation: All medical record entries made by the Tashiaibmanisha were at my direction and personally dictated by me. I have reviewed the chart and agree that the record accurately reflects my personal performance of the history, physical exam, medical decision making, and the department course for this patient. I have also personally directed, reviewed, and agree with the discharge instructions and disposition. Disposition/Present on Arrival - Present on Arrival Any Indicators Present on Arrival: No History of DVT/PE: No History of Uncontrolled Diabetes: No Urinary Catheter: No History of Decub. Ulcer: No History Surgical Site Infection Following: None - Disposition Have Diagnosis and Disposition been Completed?: Yes Diagnosis: Alcohol abuse, Thrombocytopenia Disposition: HOSPITALIZED Disposition Time: 21:41 Patient Plan: Admission Condition: FAIR
[2018-07-27 21:01] LABS: GRAN % 74.7 % (50.0-68.0); HEMOGLOBIN 12.7 g/dL (14.0-18.0); LYMPH # 0.8 (1.2-3.4); LYMPH % 17.6 % (22.0-35.0); MEAN CELL VOLUME 92.3 fl (80.0-105.0); MEAN CORPUSCULAR HEMOGLOBIN 31.4 pg (25.0-35.0); MONO # 0.3 (0.1-0.6); MONO % 7.7 % (1.0-6.0); PLATELET COUNT 70 10^3/uL (120.0-450.0); RBC 4.05 10^6/uL (3.5-6.1); RED CELL DISTRIBUTION WIDTH 15.2 % (11.5-14.5); WHITE BLOOD COUNT 4.4 10^3/ul (4.5-11.0)
[2018-07-27 21:08] LABS: INR 1.16; PARTIAL THROMBOPLASTIN TIME 29.9 Seconds (25.1-36.5); PROTHROMBIN TIME 13.3 SECONDS (9.4-12.5)
[2018-07-27 21:11] LABS: ALBUMIN 3.9 g/dL (3.0-4.8); ALT/SGPT 110 U/L (7-56); AST/SGOT 363 U/L (17-59); BLOOD UREA NITROGEN 17 mg/dL (7-21); CALCIUM 8.5 mg/dL (8.4-10.5); GFR NON-AFRICAN AMERICAN > 60
[2018-07-27] MEDS ORDERED: Magnesium Sulfate 1 gm in D5W 1 GM/100 ML BAG IV ONE (21:55)
[2018-07-27] MEDS ORDERED: Dextrose 5%/0.45% NS 1,000 ML IV SCH (22:00)
[2018-07-27] MEDS ORDERED: Multivitamin (MVI) 10 ML, Thiamine 100 MG, Folic Acid 1 MG in Sodium Chloride 0.9% 1,00... IV ONE ×3 (22:12→22:33)
[2018-07-28 06:36] LABS: GRAN # 1.64 (1.4-6.5); GRAN % 64.5 % (50.0-68.0); HEMOGLOBIN 11.1 g/dL (14.0-18.0); LYMPH # 0.7 (1.2-3.4); LYMPH % 27.2 % (22.0-35.0); MEAN CELL VOLUME 92.7 fl (80.0-105.0); MEAN CORPUSCULAR HEMOGLOBIN 31.4 pg (25.0-35.0); MEAN CORPUSCULAR HGB CONC 33.8 g/dl (31.0-37.0); MEAN PLATELET VOLUME 11.8 fl (7.0-11.0); MONO # 0.2 (0.1-0.6); MONO % 8.3 % (1.0-6.0); RBC 3.54 10^6/uL (3.5-6.1); RED CELL DISTRIBUTION WIDTH 15.2 % (11.5-14.5)
[2018-07-28 07:03] LABS: WHITE BLOOD COUNT 2.5 10^3/ul (4.5-11.0)
[2018-07-28 07:11] LABS: ALBUMIN 3.3 g/dL (3.0-4.8); ALT/SGPT 97 U/L (7-56); AST/SGOT 295 U/L (17-59); BLOOD UREA NITROGEN 16 mg/dL (7-21); CALCIUM 8.2 mg/dL (8.4-10.5); GFR NON-AFRICAN AMERICAN > 60
[2018-07-28] MEDS ORDERED: Magnesium Sulfate 1 gm in D5W 1 GM/100 ML BAG IV ONE (09:50)
[2018-07-28] MEDS ORDERED: Multivitamin (MVI) 10 ML, Thiamine 100 MG, Folic Acid 1 MG in Sodium Chloride 0.9% 1,00... IV ONE (11:49)
--- NOTE | 2018-07-28 12:17 | HP ---
Copied To: Jen Fuchs MD Attending MD: Jen Fuchs MD HISTORY OF PRESENT ILLNESS: The patient is 58 years old, the patient of Dr. Garrett Anderson. The patient states his girlfriend who he was supposed to get left him almost a month ago. Since then, he has been drinking a lot and he was and upset. He called Dr. Garrett Anderson, who is his friend, who advised him to come to emergency room for detox. He has been having generalized weakness, complaint of feeling shakes, complaint of epigastric discomfort. The patient states he has been drinking almost 2 pints of hard liquor and last drink was yesterday. Denies any fever or chills. No nausea or vomiting. No hemoptysis. No hemoptysis. PAST MEDICAL HISTORY: Significant for, 1. Thrombocytopenia. 2. History of hypertension. 3. Anxiety disorder. 4. History of gout. 5. History of alcohol use. SOCIAL HISTORY: He is single. He drinks 3 pints of vodka intermittently, especially when he is most stressed out. He has a history of cocaine abuse. ALLERGIES: HE IS NOT ALLERGIC TO ANY MEDICATION. MEDICATIONS AT HOME: He was on Augmentin, not anymore. PHYSICAL EXAMINATION: GENERAL: He is awake, alert, oriented, communicative. VITAL SIGNS: He is afebrile, had T-max 100.2 yesterday, pulse 94, respirations 20, blood pressure 124/88. LUNGS: Bilateral good airflow. No rhonchi or crackle. HEART: S1 and S2 audible. ABDOMEN: Soft, obese, nontender. No rebound. No guarding. NEUROLOGICAL: He is awake, alert, oriented, communicative. LABORATORY EXAM: WBC is 2.5, hemoglobin 11, hematocrit 32.8, platelet 61. Chemistry: Sodium 142, potassium 3.8, chloride 103, CO2 of 26, BUN 16, creatinine 0.8, blood sugar of 77, magnesium 1.5, total bili 2.4, AST 295, ALT 97, alcohol level is 332. ASSESSMENT: 1. Alcohol intoxication. 2. History of anxiety. 3. Hypertension. 4. Thrombocytopenia. PLAN: We will continue the patient on Librium. We will give him Ativan as needed. We will continue him on IV fluid. We will supplement his magnesium. We will continue him on Protonix and thiamine. Advance his diet. Dr. Ni will follow up the patient. Jen Fuchs MD
--- NOTE | 2018-07-28 16:12 | CON ---
Copied To: Yolette Sanchez MD Attending MD: Yolette Sanchez MD DATE: 07/28/2018 HISTORY OF PRESENT ILLNESS: In short, the patient is a 58-year-old male with reported history of alcohol abuse. The patient has been admitted to the medical site for evaluation of possible alcohol withdrawal symptoms. Psych consult was called for evaluation of possible depressive symptoms. The patient was seen and examined. The patient presented to be alert and oriented. The patient reported to feel more comfortable right now. The patient reported transient depressive thoughts, but adamantly denied thoughts of killing himself or others. The patient reports that usually he drinks 2 pints of vodka on daily basis. 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 The patient reports that he has history of attending AA meetings and he was willing to have information about AA meetings in the community. Besides that, the patient denied any voices, denied seeing things, denied paranoid ideations. The patient did not express any interest to go to inpatient rehab. The patient was educated about naltrexone for the future references. The patient verbalized understanding, but he does not want to start this medication now. Labs reviewed. Vital signs reviewed, which seems to be stable. Temperature 98, pulse is 94, blood pressure 124/88, respirations 20, oxygen saturation is 96. Medications reviewed. The patient is on Tylenol, Librium 25 mg every 6 hours scheduled. The patient is on Ativan 2 mg IV push every 4 hours as needed for alcohol withdrawal symptoms. The patient is on multivitamins, thiamine and folic acid, Protonix and thiamine 100 mg daily. Labs reviewed. WBC cells 2.5, hemoglobin 11.1, hematocrit 32.8. Coagulation reviewed. Chemistry reviewed. AST and ALT are elevated. Toxicology reviewed. Alcohol level was 332 yesterday. Microbiology reviewed. MENTAL STATUS EXAMINATION: The patient was seen and examined. The patient presented to be alert and oriented, superficially cooperative. Fair eye contact. Mood described, at times, I feel depressed. Affect was constricted. Thought process seems to be coherent and goal directed. Thought content, the patient denied visual, auditory or tactile hallucinations. Denied paranoid ideation. The patient denied thoughts of harming himself or others. Denied intents or plan. Insight and judgment seems to be improving. Impulses are well controlled. IMPRESSION: Alcohol use disorder, rule out alcohol withdrawal symptoms, rule out mood disorder, rule out substance-induced mood disorder. PLAN: The patient was educated about AA meeting, social work evaluation. This administrative underwriter educated the patient about naltrexone for cravings. The patient might benefit from inpatient rehab, but the patient expressed no interest to do so. The patient is not suicidal, not homicidal, pose no imminent danger to self or others. Thank you very much for letting me participate in the care of your patient. Should you have any questions, give me a call back. Yolette Sanchez MD
--- NOTE | 2018-07-28 21:37 | CARD ---
APPROVED REPORT Date of service: 07/27/2018 EKG Measurement Heart [id number] <Conclusion> Normal sinus rhythm Normal ECG
[2018-07-29 06:33] LABS: GRAN # 1.09 (1.4-6.5); GRAN % 59.3 % (50.0-68.0); HEMOGLOBIN 10.3 g/dL (14.0-18.0); LYMPH # 0.6 (1.2-3.4); LYMPH % 30.4 % (22.0-35.0); MEAN CELL VOLUME 94.1 fl (80.0-105.0); MEAN PLATELET VOLUME 11.2 fl (7.0-11.0); MONO # 0.2 (0.1-0.6); MONO % 10.3 % (1.0-6.0); RBC 3.22 10^6/uL (3.5-6.1); RED CELL DISTRIBUTION WIDTH 15.2 % (11.5-14.5)
[2018-07-29 06:55] LABS: ALT/SGPT 85 U/L (7-56); AST/SGOT 231 U/L (17-59); BLOOD UREA NITROGEN 14 mg/dL (7-21); CALCIUM 8.3 mg/dL (8.4-10.5); GFR NON-AFRICAN AMERICAN > 60
[2018-07-29] MEDS ORDERED: Magnesium 2 gm/50 ml NS 2 GM/50 ML BAG IVPB ONE (07:14)
[2018-07-29] MEDS ORDERED: Magnesium Sulfate 2 gm/50 ml 2 GM/50 ML BAG IVPB ONE (07:37)
[2018-07-29 07:40] LABS: WHITE BLOOD COUNT 1.8 10^3/ul (4.5-11.0)
[2018-07-29 07:41] LABS: PLATELET COUNT 40 10^3/uL (120.0-450.0)
[2018-07-29] MEDS: Pantoprazole 40 mg EC Tab PO SCH (09:11)
[2018-07-29] MEDS: Magnesium Oxide 400 mg Tab UD PO SCH ×3 (09:15→18:36)
--- NOTE | 2018-07-29 10:31 | CP.PCM.PN ---
Subjective - Date & Time of Evaluation Date of Evaluation: 07/29/18 Time of Evaluation: 10:25 - Subjective Subjective: Patient seen and examined at bedside. Patient states he feels well today with no complains. Denies chest pain, shortness of breath, nausea, vomiting, diarrhea , fever, chills. Objective - Vital Signs/Intake and Output Vital Signs (last 24 hours): Temp Pulse Resp BP Pulse Ox 99 F 92 H 19 140/99 H 96 07/29/18 07:31 07/29/18 07:31 07/29/18 07:31 07/29/18 07:31 07/29/18 07:31 Intake and Output: 07/29/18 07/29/18 06:59 18:59 Intake Total 1080 Output Total 350 Balance 730 - Medications Medications: Current Medications Acetaminophen (Tylenol 325mg Tab) 650 mg PO Q6H PRN PRN Reason: Fever >100.4 F Lorazepam (Ativan) 2 mg IVP Q4H PRN; Protocol PRN Reason: Symptoms of alcohol withdrawl Last Admin: 07/28/18 17:27 Dose: 2 mg Lorazepam (Ativan) 1 mg IVP Q2H PRN; Protocol PRN Reason: Symptoms of alcohol withdrawl Magnesium Oxide (Mag-Ox) 400 mg PO TID [facility] Last Admin: 07/29/18 09:15 Dose: 400 mg Pantoprazole Sodium (Protonix Ec Tab) 40 mg PO ACB [facility] Last Admin: 07/29/18 09:11 Dose: 40 mg Thiamine HCl (Vitamin B1 Tab) 100 mg PO DAILY [facility] Last Admin: 07/29/18 09:12 Dose: 100 mg - Labs Labs: 07/29/18 06:00 07/29/18 06:00 PT 13.3 SECONDS (9.4-12.5) H 07/27/18 20:53 INR 1.16 07/27/18 20:53 APTT 29.9 Seconds (25.1-36.5) 07/27/18 20:53 - Constitutional Appears: Non-toxic, No Acute Distress - Head Exam Head Exam: ATRAUMATIC, NORMAL INSPECTION, NORMOCEPHALIC - ENT Exam ENT Exam: Mucous Membranes Moist - Respiratory Exam Respiratory Exam: Clear to Ausculation Bilateral, NORMAL BREATHING PATTERN - Cardiovascular Exam Cardiovascular Exam: RRR, +S1, +S2 - GI/Abdominal Exam GI & Abdominal Exam: Soft, Normal Bowel Sounds. absent: Tenderness - Extremities Exam Extremities Exam: Normal Inspection. absent: Pedal Edema - Neurological Exam Neurological Exam: Alert, Awake, CN II-XII Intact, Oriented x3 Additional comments: No tremor - Psychiatric Exam Psychiatric exam: Normal Affect, Normal Mood - Skin Skin Exam: Abrasion (On left kneww), Intact, Warm Assessment and Plan - Assessment and Plan (Free Text) Plan: 1. Alcohol withdrawal 2. Thrombocytopenia 3. Normocytic anemia 4. Transaminitis 5. Hypomagnesemia Patient remains on CIWA protocol. He has improvement of his alcohol withdrawal symptoms. We will stop Librium at this time as patient has transaminitis, secondary to chronic alcohol use. Patient has hx of chronic thrombocytopenia, will continue to monitor for any worsening or signs of bleeding. Patient will have magnesium repleted this morning. We will continue to monitor patient closely and continue current medical regimen. Silas, PGY-3
[2018-07-29 16:32] VITALS: RESP 20
[2018-07-30 07:54] LABS: HEMOGLOBIN 10.2 g/dL (14.0-18.0); MEAN CELL VOLUME 94.1 fl (80.0-105.0); MEAN CORPUSCULAR HEMOGLOBIN 31.6 pg (25.0-35.0); MEAN CORPUSCULAR HGB CONC 33.6 g/dl (31.0-37.0); MEAN PLATELET VOLUME 11.5 fl (7.0-11.0); RBC 3.23 10^6/uL (3.5-6.1)
[2018-07-30 07:58] LABS: PLATELET COUNT 36 10^3/uL (120.0-450.0); WHITE BLOOD COUNT 1.6 10^3/ul (4.5-11.0)
[2018-07-30 08:07] LABS: GRAN % 62.5 % (50.0-68.0); LYMPH % 27.5 % (22.0-35.0); MONO % 9.7 % (1.0-6.0)
[2018-07-30 08:08] LABS: LYMPH # 0.5 (1.2-3.4); MONO # 0.2 (0.1-0.6); PLATELET ESTIMATE LOW (NORMAL)
[2018-07-30] MEDS: Pantoprazole 40 mg EC Tab PO SCH (08:15)
[2018-07-30 08:28] VITALS: BP 120/87; TEMP 99.5; O2SAT 96
--- NOTE | 2018-07-30 09:17 | CP.PCM.DIS ---
<Nagi Rosen - Last Filed: 07/30/18 09:17> Provider - Provider Date of Admission: 07/27/18 21:41 Attending physician: Giovanny Ni MD Primary care physician: Maynor Anderson MD Consults: Psych - Dr. De La Garza Time Spent in preparation of Discharge (in minutes): 45 Diagnosis - Discharge Diagnosis (1) Alcohol abuse Status: Chronic (2) Thrombocytopenia Status: Chronic (3) Alcohol withdrawal Status: Resolved (4) Elevated liver enzymes Status: Chronic (5) Leukopenia Status: Acute Hospital Course - Lab Results Lab Results: Most Recent Lab Values WBC 1.6 10^3/ul (4.5-11.0) L* 07/30/18 07:40 RBC 3.23 10^6/uL (3.5-6.1) L 07/30/18 07:40 Hgb 10.2 g/dL (14.0-18.0) L 07/30/18 07:40 Hct 30.4 % (42.0-52.0) L 07/30/18 07:40 MCV 94.1 fl (80.0-105.0) 07/30/18 07:40 MCH 31.6 pg (25.0-35.0) 07/30/18 07:40 MCHC 33.6 g/dl (31.0-37.0) 07/30/18 07:40 RDW 15.0 % (11.5-14.5) H 07/30/18 07:40 Plt Count 36 10^3/uL (120.0-450.0) L* 07/30/18 07:40 MPV 11.5 fl (7.0-11.0) H 07/30/18 07:40 Gran % 62.5 % (50.0-68.0) 07/30/18 07:40 Lymph % (Auto) 27.5 % (22.0-35.0) 07/30/18 07:40 [place] % (Auto) 9.7 % (1.0-6.0) H 07/30/18 07:40 Eos % (Auto) 0.0 % (1.5-5.0) L 07/30/18 07:40 Baso % (Auto) 0.0 % (0.0-3.0) 07/30/18 07:40 Gran # 1.10 (1.4-6.5) L 07/30/18 07:40 Lymph # (Auto) 0.5 (1.2-3.4) L 07/30/18 07:40 [place] # (Auto) 0.2 (0.1-0.6) 07/30/18 07:40 Eos # (Auto) 0.0 (0.0-0.7) 07/30/18 07:40 Baso # (Auto) 0.00 K/mm3 (0.0-2.0) 07/30/18 07:40 Platelet Evaluation Low (NORMAL) 07/30/18 07:40 PT 13.3 SECONDS (9.4-12.5) H 07/27/18 20:53 INR 1.16 07/27/18 20:53 APTT 29.9 Seconds (25.1-36.5) 07/27/18 20:53 Sodium 140 mmol/L (132-148) 07/29/18 06:00 Potassium 4.0 mmol/L (3.6-5.0) 07/29/18 06:00 Chloride 103 mmol/L (98-107) 07/29/18 06:00 Carbon Dioxide 28 mmol/L (21-33) 07/29/18 06:00 Anion Gap 13 (10-20) 07/29/18 06:00 BUN 14 mg/dL (7-21) 07/29/18 06:00 Creatinine 0.6 mg/dl (0.8-1.5) L 07/29/18 06:00 Est GFR ( Amer) > 60 07/29/18 06:00 Est GFR (Non-Af Amer) > 60 07/29/18 06:00 Random Glucose 85 mg/dL (70-110) 07/29/18 06:00 Calcium 8.3 mg/dL (8.4-10.5) L 07/29/18 06:00 Phosphorus 2.8 mg/dL (2.5-4.5) 07/29/18 06:00 Magnesium 1.5 mg/dL (1.7-2.2) L 07/29/18 06:00 Total Bilirubin 3.2 mg/dL (0.2-1.3) H 07/29/18 06:00 AST 231 U/L (17-59) H D 07/29/18 06:00 ALT 85 U/L (7-56) H 07/29/18 06:00 Alkaline Phosphatase 88 U/L (38-126) 07/29/18 06:00 Total Protein 6.1 g/dL (5.8-8.3) 07/29/18 06:00 Albumin 3.0 g/dL (3.0-4.8) 07/29/18 06:00 Globulin 3.1 gm/dL 07/29/18 06:00 Albumin/Globulin Ratio 1.0 (1.1-1.8) L 07/29/18 06:00 Alcohol, Quantitative 332 mg/dL (0-10) H* 07/27/18 20:53 - Hospital Course Hospital Course: 58 year old male with past medical history of alcohol abuse and chronic thrombocytopenia presented to the hospital for alcohol withdrawal. Patient was treated with ativan and IVF to help with his symptoms. Patient had transaminitis which is chronic. Patient recently had abdomen ultrasound with no acute pathology. Thrombocytopenia was present, but stable. Patient was seen by psychiatry who recommended inpatient rehab, but the patient refused. Patient was counseled on alcohol abstinence. Discharge Exam - Head Exam Head Exam: ATRAUMATIC, NORMAL INSPECTION, NORMOCEPHALIC - ENT Exam ENT Exam: Mucous Membranes Moist - Respiratory Exam Respiratory Exam: NORMAL BREATHING PATTERN, UNREMARKABLE - Cardiovascular Exam Cardiovascular Exam: RRR, +S1, +S2 - GI/Abdominal Exam GI & Abdominal Exam: Normal Bowel Sounds, Soft, Unremarkable. absent: Tenderness - Extremities Exam Extremities exam: normal inspection - Neurological Exam Neurological exam: Alert, CN II-XII Intact, Oriented x3 - Psychiatric Exam Psychiatric exam: Normal Affect, Normal Mood - Skin Skin Exam: Intact, Normal Color, Warm Discharge Plan - Discharge Medications Prescriptions: Folic Acid 1 mg PO DAILY #14 tab Multivit-Min/Iron/Folic Acid/K [Adults Multivitamin Tablet] 1 each PO DAILY #14 tablet Thiamine [Vitamin B1] 50 mg PO DAILY #14 tab - Follow Up Plan Condition: FAIR Disposition: HOME/ ROUTINE Instructions: Alcohol Use - When Is Drinking a Problem?, Alcohol Withdrawal (DC ) Referrals: Giovanny Ni MD [Staff Provider] - <Giovanny Ni - Last Filed: 07/30/18 21:18> Provider - Provider Date of Admission: 07/27/18 21:41 Attending physician: Giovanny Ni MD Primary care physician: Maynor Anderson MD Consults: 07/27/18 23:32 Nursing Referral for Wound Care Routine Comment: Physician Instructions: Reason For Exam: SCABS TO B/L KNEES Hospital Course - Lab Results Lab Results: Most Recent Lab Values WBC 1.6 10^3/ul (4.5-11.0) L* 07/30/18 07:40 RBC 3.23 10^6/uL (3.5-6.1) L 07/30/18 07:40 Hgb 10.2 g/dL (14.0-18.0) L 07/30/18 07:40 Hct 30.4 % (42.0-52.0) L 07/30/18 07:40 MCV 94.1 fl (80.0-105.0) 07/30/18 07:40 MCH 31.6 pg (25.0-35.0) 07/30/18 07:40 MCHC 33.6 g/dl (31.0-37.0) 07/30/18 07:40 RDW 15.0 % (11.5-14.5) H 07/30/18 07:40 Plt Count 36 10^3/uL (120.0-450.0) L* 07/30/18 07:40 MPV 11.5 fl (7.0-11.0) H 07/30/18 07:40 Gran % 62.5 % (50.0-68.0) 07/30/18 07:40 Lymph % (Auto) 27.5 % (22.0-35.0) 07/30/18 07:40 [place] % (Auto) 9.7 % (1.0-6.0) H 07/30/18 07:40 Eos % (Auto) 0.0 % (1.5-5.0) L 07/30/18 07:40 Baso % (Auto) 0.0 % (0.0-3.0) 07/30/18 07:40 Gran # 1.10 (1.4-6.5) L 07/30/18 07:40 Lymph # (Auto) 0.5 (1.2-3.4) L 07/30/18 07:40 [place] # (Auto) 0.2 (0.1-0.6) 07/30/18 07:40 Eos # (Auto) 0.0 (0.0-0.7) 07/30/18 07:40 Baso # (Auto) 0.00 K/mm3 (0.0-2.0) 07/30/18 07:40 Platelet Evaluation Low (NORMAL) 07/30/18 07:40 PT 13.3 SECONDS (9.4-12.5) H 07/27/18 20:53 INR 1.16 07/27/18 20:53 APTT 29.9 Seconds (25.1-36.5) 07/27/18 20:53 Sodium 140 mmol/L (132-148) 07/29/18 06:00 Potassium 4.0 mmol/L (3.6-5.0) 07/29/18 06:00 Chloride 103 mmol/L (98-107) 07/29/18 06:00 Carbon Dioxide 28 mmol/L (21-33) 07/29/18 06:00 Anion Gap 13 (10-20) 07/29/18 06:00 BUN 14 mg/dL (7-21) 07/29/18 06:00 Creatinine 0.6 mg/dl (0.8-1.5) L 07/29/18 06:00 Est GFR ( Amer) > 60 07/29/18 06:00 Est GFR (Non-Af Amer) > 60 07/29/18 06:00 Random Glucose 85 mg/dL (70-110) 07/29/18 06:00 Calcium 8.3 mg/dL (8.4-10.5) L 07/29/18 06:00 Phosphorus 2.8 mg/dL (2.5-4.5) 07/29/18 06:00 Magnesium 1.5 mg/dL (1.7-2.2) L 07/29/18 06:00 Total Bilirubin 3.2 mg/dL (0.2-1.3) H 07/29/18 06:00 AST 231 U/L (17-59) H D 07/29/18 06:00 ALT 85 U/L (7-56) H 07/29/18 06:00 Alkaline Phosphatase 88 U/L (38-126) 07/29/18 06:00 Total Protein 6.1 g/dL (5.8-8.3) 07/29/18 06:00 Albumin 3.0 g/dL (3.0-4.8) 07/29/18 06:00 Globulin 3.1 gm/dL 07/29/18 06:00 Albumin/Globulin Ratio 1.0 (1.1-1.8) L 07/29/18 06:00 Alcohol, Quantitative 332 mg/dL (0-10) H* 07/27/18 20:53 - Hospital Course Hospital Course: Pt seen and examined. I have reviewed the note of the medical record retrieval specialist and agree with it. I have discussed the assessment and plan with the resident. I have reviewed the patient's labs and medications. Pt is able to ambulate and off oral Librium. He was advised to stop drinking. He says he does understand. Will D/C home.
[2018-07-30] MEDS: Magnesium Oxide 400 mg Tab UD PO SCH (10:13)
[2018-07-30 12:14] VITALS: PULSE 81
== END 2018-07-30 13:38 | disposition home or self-care (01) | DRG 750 ==
LOC: ED 20:07 → ERH 21:41 → 3RNO 22:25
PROVIDERS: ADMIT Internal Medicine Nephrology; ATTEND Internal Medicine Nephrology
DX: F10.239 Alcohol dependence with withdrawal, unspecified (principal); D69.6 Thrombocytopenia, unspecified; F10.229 Alcohol dependence with intoxication, unspecified; I10 Essential (primary) hypertension; D72.819 Decreased white blood cell count, unspecified; Y90.8 Blood alcohol level of 240 mg/100 ml or more; R74.0 Nonspecific elevation of levels of transaminase and lactic acid dehydrogenase [LDH]; E83.42 Hypomagnesemia; D64.9 Anemia, unspecified